=== PATIENT | female | born 1985 | race Caucasian/White ===

== ENCOUNTER 2017-02-06 10:37 | Emergency (ER) | payer OTHER ==
[2017-02-06 10:46] VITALS: RESP 18
--- NOTE | 2017-02-06 11:16 | ED ---
General Adult HPI - General Chief complaint: Abdominal Pain Stated complaint: ABDOMINAL PAIN Time Seen by Provider: 02/06/17 11:05 Source: patient, RN notes reviewed Mode of arrival: ambulatory Limitations: no limitations - History of Present Illness Initial comments: Patient 31-year-old female who presents emergency room today with a chief complaint of increased abdominal pain. Does admit that symptoms started late last night approximately 11 PM. She states that still experiencing pain this morning. She states she was instructed from her work to come here to the emergency room to have it checked. Patient does admit to pain locally to the epigastric area describes it as sharp. States she feels pain in the right side of the abdomen well. Patient is to feeling nauseated but has not had any vomiting. States never had symptoms like this before. Denies anything that makes it better or worse. Patient denies any recent fever, chills, shortness of breath, chest pain, back pain, vomiting, numbness or tingling, dysuria or hematuria, constipation or diarrhea, headaches or visual changes, or any other complaints. - Related Data Previous Rx's Medication Instructions Recorded Nitrofurantoin Monohyd/M-Cryst 100 mg PO Q12HR #14 cap 02/06/17 [Macrobid] Omeprazole 20 mg PO DAILY #20 capsule. 02/06/17 Allergies Allergy/AdvReac Type Severity Reaction Status Date / Time No Known Allergies Allergy Verified 02/06/17 11:04 Review of Systems ROS Statement: Those systems with pertinent positive or pertinent negative responses have been documented in the HPI. ROS Other: All systems not noted in ROS Statement are negative. Past Medical History Past Medical History: No Reported History History of Any Multi-Drug Resistant Organisms: None Reported Past Surgical History: No Surgical Hx Reported Past Psychological History: No Psychological Hx Reported Smoking Status: Never smoker Past Alcohol Use History: None Reported Past Drug Use History: None Reported - Past Family History Father Family Medical History: Cancer (Lymphoma), Diabetes Mellitus, Hypertension Mother Family Medical History: Diabetes Mellitus, Hypertension General Exam - General Exam Comments Initial Comments: General: The patient is awake and alert, in no distress, and does not appear acutely ill. Eye: Pupils are equal, round and reactive to light, extra-ocular movements are intact. No nystagmus. There is normal conjunctiva bilaterally. No signs of icterus. Ears, nose, mouth and throat: There are moist mucous membranes and no oral lesions. Neck: The neck is supple, there is no tenderness or JVD. Cardiovascular: There is a regular rate and rhythm. No murmur, rub or gallop is appreciated. Respiratory: Lungs are clear to auscultation, respirations are non-labored, breath sounds are equal. No wheezes, stridor, rales, or rhonchi. Gastrointestinal: Normal. Exam. Normal bowel sounds. Soft on palpation. Patient does have tenderness in epigastric and mild tenderness right upper quadrant. No rebound tenderness. No guarding. No CVA tenderness. Musculoskeletal: Normal ROM, no tenderness. Strength 5/5. Sensation intact. Pulses equal bilaterally 2+. Neurological: A&O x 3. CN II-XII intact, There are no obvious motor or sensory deficits. Coordination appears grossly intact. Speech is normal. Skin: Skin is warm and dry and no rashes or lesions are noted. Psychiatric: Cooperative, appropriate mood & affect, normal judgment. Limitations: no limitations Course Vital Signs 02/06/17 10:43 Temperature 98.7 F Pulse Rate 83 Respiratory 18 Rate Blood Pressure 158/81 O2 Sat by Pulse 99 Oximetry Medical Decision Making - Medical Decision Making [place] this time shows no signs of distress she is resting comfortably. Does admit that she had cocktail didn't help with some of the pain in the epigastric area. Patient's ultrasound reviewed and does show evidence for cholelithiasis but no sign of cholecystitis. Patient's labs reviewed and does show evidence of possible urinary tract infection. She does admit to increased urinary frequency will be started on antibiotics also will be started on omeprazole for her stomach and epigastric pain. Signs symptoms of gallbladder versus ulcer and acid reflux were discussed with the patient in detail advised follow-up return if symptoms increase or worsen. She states understanding and is in agreement. - Lab Data Result diagrams: 02/06/17 11:05 02/06/17 11:05 Lab Results 02/06/17 02/06/17 02/06/17 Range/Units 11:05 11:05 11:05 WBC 8.0 (3.8-10.6) k/uL RBC 4.39 (3.80-5.40) m/uL Hgb 13.9 (11.4-16.0) gm/dL Hct 40.0 (34.0-46.0) % MCV 91.0 (80.0-100.0) fL MCH 31.7 (25.0-35.0) pg MCHC 34.9 (31.0-37.0) g/dL RDW 13.1 (11.5-15.5) % Plt Count 235 (150-450) k/uL Neutrophils % 73 % Lymphocytes % 20 % Monocytes % 4 % Eosinophils % 1 % Basophils % 0 % Neutrophils # 5.8 (1.3-7.7) k/uL Lymphocytes # 1.6 (1.0-4.8) k/uL Monocytes # 0.3 (0-1.0) k/uL Eosinophils # 0.1 (0-0.7) k/uL Basophils # 0.0 (0-0.2) k/uL Sodium 143 (137-145) mmol/L Potassium 3.9 (3.5-5.1) mmol/L Chloride 105 (98-107) mmol/L Carbon Dioxide 25 (22-30) mmol/L Anion Gap 13 mmol/L BUN 14 (7-17) mg/dL Creatinine 0.80 (0.52-1.04) mg/dL Est GFR (MDRD) Af Amer >60 (>60 ml/min/1.73 sqM) Est GFR (MDRD) Non-Af >60 (>60 ml/min/1.73 sqM) Glucose 94 (74-99) mg/dL Calcium 9.4 (8.4-10.2) mg/dL Total Bilirubin 1.7 H (0.2-1.3) mg/dL AST 27 (14-36) U/L ALT 33 (9-52) U/L Alkaline Phosphatase 70 (38-126) U/L Total Protein 8.3 H (6.3-8.2) g/dL Albumin 4.7 (3.5-5.0) g/dL Amylase 43 (30-110) U/L Lipase 63 (23-300) U/L Urine Color Urine Appearance (Clear) Urine pH (5.0-8.0) Ur Specific [place] (1.001-1.035) Urine Protein (Negative) Urine Glucose (UA) (Negative) Urine Ketones (Negative) Urine Blood (Negative) Urine Nitrite (Negative) Urine Bilirubin (Negative) Urine Urobilinogen (<2.0) mg/dL Ur Leukocyte Esterase (Negative) Urine RBC (0-5) /hpf Urine WBC (0-5) /hpf Ur Squamous Epith Cells (0-4) /hpf Amorphous Sediment (None) /hpf Urine Mucus (None) /hpf Urine HCG, Qual Not Detected (Not Detectd) 02/06/17 Range/Units 11:05 WBC (3.8-10.6) k/uL RBC (3.80-5.40) m/uL Hgb (11.4-16.0) gm/dL Hct (34.0-46.0) % MCV (80.0-100.0) fL MCH (25.0-35.0) pg MCHC (31.0-37.0) g/dL RDW (11.5-15.5) % Plt Count (150-450) k/uL Neutrophils % % Lymphocytes % % Monocytes % % Eosinophils % % Basophils % % Neutrophils # (1.3-7.7) k/uL Lymphocytes # (1.0-4.8) k/uL Monocytes # (0-1.0) k/uL Eosinophils # (0-0.7) k/uL Basophils # (0-0.2) k/uL Sodium (137-145) mmol/L Potassium (3.5-5.1) mmol/L Chloride (98-107) mmol/L Carbon Dioxide (22-30) mmol/L Anion Gap mmol/L BUN (7-17) mg/dL Creatinine (0.52-1.04) mg/dL Est GFR (MDRD) Af Amer (>60 ml/min/1.73 sqM) Est GFR (MDRD) Non-Af (>60 ml/min/1.73 sqM) Glucose (74-99) mg/dL Calcium (8.4-10.2) mg/dL Total Bilirubin (0.2-1.3) mg/dL AST (14-36) U/L ALT (9-52) U/L Alkaline Phosphatase (38-126) U/L Total Protein (6.3-8.2) g/dL Albumin (3.5-5.0) g/dL Amylase (30-110) U/L Lipase (23-300) U/L Urine Color Yellow Urine Appearance Cloudy H (Clear) Urine pH 6.5 (5.0-8.0) Ur Specific [place] 1.013 (1.001-1.035) Urine Protein Negative (Negative) Urine Glucose (UA) Negative (Negative) Urine Ketones 1+ H (Negative) Urine Blood Moderate H (Negative) Urine Nitrite Negative (Negative) Urine Bilirubin Negative (Negative) Urine Urobilinogen <2.0 (<2.0) mg/dL Ur Leukocyte Esterase Moderate H (Negative) Urine RBC 1 (0-5) /hpf Urine WBC 9 H (0-5) /hpf Ur Squamous Epith Cells 3 (0-4) /hpf Amorphous Sediment Rare H (None) /hpf Urine Mucus Rare H (None) /hpf Urine HCG, Qual (Not Detectd) Disposition Clinical Impression: Urinary tract infection, Abdominal pain Disposition: HOME SELF-CARE Condition: Good Instructions: Abdominal Pain (ED) Additional Instructions: Please use medication as discussed. Please follow-up with family doctor in the next 2 days of symptoms have not improved. Please return to emergency room if the symptoms increase or worsen or for any other concerns. Prescriptions: Nitrofurantoin Monohyd/M-Cryst [Macrobid] 100 mg PO Q12HR #14 cap Omeprazole 20 mg PO DAILY #20 capsule.dr Referrals: Sal Queen MD [Primary Care Provider] - 1-2 days Time of Disposition: 12:25
[2017-02-06] MEDS: SODIUM CHLORIDE 0.9% 1,000 ML IV STA (11:27)
[2017-02-06] MEDS: MAG HYDROX/AL HYDROX/SIMETH 30 ML, HYOSCYAMINE ELIXIR 10 ML, CIMETIDINE HCL 300 MG, LID... PO STA ×4 (11:33)
[2017-02-06 11:40] LABS: Basophils % (A) 0 %; CH 32.3; CHCM 35.7; Eosinophils # (A) 0.1 k/uL (0-0.7); Eosinophils % (A) 1 %; HDW 2.83; HGB 13.9 gm/dL (11.4-16.0); Luc # (Auto) 0.13; Luc % (Auto) 2; Lymphocytes # (A) 1.6 k/uL (1.0-4.8); Lymphocytes % (A) 20 %; MCH 31.7 pg (25.0-35.0); MCHC 34.9 g/dL (31.0-37.0); Monocytes # (A) 0.3 k/uL (0-1.0); Monocytes % (A) 4 %; Neutrophils # (A) 5.8 k/uL (1.3-7.7); Neutrophils % (A) 73 %; RBC 4.39 m/uL (3.80-5.40); RDW 13.1 % (11.5-15.5); WBC (Perox) 7.85
[2017-02-06 12:01] LABS: ALT 33 U/L (9-52); AST 27 U/L (14-36); Alkaline Phosphatase 70 U/L (38-126); Amylase 43 U/L (30-110); Anion Gap 13 mmol/L; Blood Urea Nitrogen 14 mg/dL (7-17); Calcium 9.4 mg/dL (8.4-10.2); Carbon Dioxide 25 mmol/L (22-30); Chloride 105 mmol/L (98-107); Glucose 94 mg/dL (74-99); Non-African American GFR(MDRD) >60 (>60 ml/min/1.73 sqM); Potassium 3.9 mmol/L (3.5-5.1); Sodium 143 mmol/L (137-145); Total Bilirubin 1.7 mg/dL (0.2-1.3); Total Protein 8.3 g/dL (6.3-8.2)
[2017-02-06 12:10] LABS: Amorphous Sediment,Urine Rare /hpf; Appearance,Urine Cloudy (Clear); Bilirubin,Urine Negative (Negative); Glucose,Urine (UA) Negative (Negative); Ketones,Urine 1+ (Negative); Leukocyte Esterase,Urine Moderate (Negative); Mucus,Urine Rare /hpf; Nitrite,Urine Negative (Negative); PH, Urine 6.5 (5.0-8.0); Particle Count 3726; Protein,Urine Negative (Negative); RBC,Urine 1 /hpf (0-5); Specific Gravity,Urine 1.013 (1.001-1.035); Squamous Epithelial Cell,Urine 3 /hpf (0-4); UA Billing (MACRO vs. MICRO) MICRO; Urobilinogen,Urine <2.0 mg/dL (<2.0); WBC,Urine 9 /hpf (0-5)
--- NOTE | 2017-02-06 12:24 | US ---
EXAMINATION TYPE: US abdomen limited DATE OF EXAM: 02/06/2017 COMPARISON: NONE CLINICAL HISTORY: Pain. EXAM MEASUREMENTS: Liver Length: 17.7 cm Gallbladder Wall: 0.1 cm CBD: 0.5 cm Right Kidney: 12.2 x 4.8 x 5.4 cm Patient of large body habitus. Pancreas: Obscured by bowel gas Liver: Increased attenuation, hepatomegaly Gallbladder: cholelithiasis, no wall thickening Evidence for sonographic Levy's sign: no CBD: wnl Right Kidney: wnl IMPRESSION: 1. Hepatomegaly measuring 17.7 cm with increased attenuation of liver which can be associated with fa tty infiltration. Hepatitis or hepatocellular disease in the differential diagnosis. 2. Cholelithiasis.
[2017-02-06 12:50] VITALS: BP 137/87; PULSE 65; TEMP 98.1
== END 2017-02-06 12:50 | disposition home or self-care (01) ==
LOC: EC 10:37
DX: N39.0 Urinary tract infection, site not specified (principal); K80.20 Calculus of gallbladder without cholecystitis without obstruction
CPT/HCPCS: 36415; 76705; 80053; 81001; 81025; 82150; 83690; 85025; 96360; 99284

== ENCOUNTER 2018-08-24 13:05 | Outpatient (CLI) | payer OTHER ==
[2018-08-24 14:07] VITALS: BP 141/77; PULSE 83; RESP 16; TEMP 97.7
--- NOTE | 2018-08-24 20:13 | P.MSEPDOC ---
Presenting Problems - Arrival Data Date of Arrival on Unit: 08/24/18 Time of Arrival on Unit: 13:05 Mode of Transport: Ambulatory - Complaint OB-Reason for Admission/Chief Complaint: Pain Comment: back pain and pelvic pressure Medical History - Information : 6 Para: 4 Term: 3 : 4 Abortions: Spontaneous or Elective: 1 Number of Living Children: 4 - Gestational Age Gestational Age by JAKE (wks/days): 30 Weeks and 1 Days - History Complications: Prior Review of Systems - Review of Systems Constitutional: No problems Breast: No problems ENT: No problems Cardiovascular: No problems Respiratory: No problems Gastrointestinal: No problems Genitourinary: No problems Musculoskeletal: No problems Neurological: No problems Skin: No problems Vital Signs - Temperature Temperature: 97.7 F Temperature Source: Temporal Artery Scan - Pulse Right Brachial Pulse Rate: 83 Pulse Assessment Method: Automatic Cuff - Respirations Respiratory Rate: 16 Oxygen Delivery Method: Room Air O2 Sat by Pulse Oximetry: 97 - Blood Pressure Right Arm Blood Pressure: 141/77 Blood Pressure Mean: 98 Blood Pressure Source: Automatic Cuff Medical Screen Scoring (Pre) - Cervical Exam Dilation: 0 cm = 0 Membranes: Intact - Uterine Contractions Frequency: N/A Duration: N/A Intensity: N/A - Maternal Vital Signs Maternal Temperature: N/A Maternal Blood Pressure: Systolic >139 = 2 Signs of Preeclampsia: N/A Maternal Respirations: N/A - Pain Assessment Pain Location and Character: Pelvic Pain Scale Used: Numeric (1 - 10) Pain Intensity: 5 Pain Description: *Acute, Pressure Pain Frequency: Constant Pain Duration: 14 Pain Duration Units: Days Pain Behavior: None Exhibited Pain Aggravating Factors: Activity - Maternal Trauma Maternal Trauma: N/A - Assessment Baseline FHR: 135 Heart Rate - NICHD Category: Category I (Normal) = 0 NST: Reactive Position: N/A - Total Score Total Score (Pre): 2 - Level of Risk Level of Risk: Low (0-5) Physician Notification (Pre) - Physician Notified Physician Notified Date: 08/24/18 Physician Notified Time: 13:43 Spoke With: Jimmy Marcum Order Received: Yes (ffn, and check, if closed and reactive then d/c follow up with her Physicia) Physician Notification (Post) - Notification Comment Comment: closed, no contractions, reactive Disposition - Disposition OB Disposition: Discharge to home, Written follow up instructions reviewed Discharge Date: 08/24/18 Discharge Time: 13:59 I agree with the RN Medical Screening Exam: Yes Risk & Benefit of care provided described in d/c instruction: Yes Diagnosis: FALSE LABOR AT OR AFTER 37 COMPLETED WEEKS OF GESTATION
== END 2018-08-24 13:59 ==
LOC: FBPOP 13:05
PROVIDERS: ATTEND Obstetrics & Gynecology
DX: O47.1 False labor at or after 37 completed weeks of gestation (principal)
CPT/HCPCS: 59025; G0463; 99213

== ENCOUNTER 2018-11-12 22:05 | Outpatient (CLI) | payer OTHER ==
[2018-11-12 22:58] VITALS: BP 127/65; PULSE 104; RESP 16; TEMP 97.4
--- NOTE | 2018-11-13 01:01 | P.MSEPDOC ---
Presenting Problems - Arrival Data Date of Arrival on Unit: 11/12/18 Time of Arrival on Unit: 22:05 Mode of Transport: Ambulatory - Complaint Comment: Pelvic pressure Medical History - Information : 5 Para: 4 Term: 3 : 1 Abortions: Spontaneous or Elective: 0 Number of Living Children: 4 - Gestational Age Gestational Age by JAKE (wks/days): 37 Weeks and 1 Days Review of Systems - Review of Systems Constitutional: No problems Breast: No problems ENT: No problems Cardiovascular: No problems Respiratory: No problems Gastrointestinal: No problems Genitourinary: No problems Musculoskeletal: No problems Neurological: No problems Skin: No problems Vital Signs - Temperature Temperature: 97.4 F Temperature Source: Temporal Artery Scan - Pulse Right Brachial Pulse Rate: 104 Pulse Assessment Method: Automatic Cuff - Respirations Respiratory Rate: 16 Oxygen Delivery Method: Room Air O2 Sat by Pulse Oximetry: 97 - Blood Pressure Right Arm Blood Pressure: 127/65 Blood Pressure Mean: 85 Blood Pressure Source: Automatic Cuff Medical Screen Scoring (Pre) - Cervical Exam Dilation: 0 cm = 0 Membranes: Intact - Uterine Contractions Frequency: N/A Duration: N/A Intensity: N/A - Maternal Vital Signs Maternal Temperature: N/A Maternal Blood Pressure: N/A Maternal Respirations: N/A - Pain Assessment Pain Location and Character: Pelvic Pain Scale Used: Numeric (1 - 10) Pain Intensity: 3 Pain Description: *Acute, Pressure Pain Frequency: Intermittent Pain Duration Units: Minutes Pain Behavior: None Exhibited Pain Aggravating Factors: None - Maternal Trauma Maternal Trauma: N/A - Assessment Baseline FHR: 135 Heart Rate - NICHD Category: Category I (Normal) = 0 NST: Reactive Position: N/A - Total Score Total Score (Pre): 0 - Level of Risk Level of Risk: Low (0-5) Physician Notification (Pre) - Physician Notified Physician Notified Date: 11/12/18 Physician Notified Time: 22:40 Physician/Practitioner Notifed:: Dr. Currie Spoke With: Dr. Currie New Order Received: Yes - Notification Comment Comment: Dr. Currie given report on pt in tr. Pt c/o. VS WNL. Reactive NST. Vag exam of closed/thick/high. No contractions noted. Orders recieved to d/c pt to home once nst completed and reactive. To educate pt to continue care with personal drJes Disposition - Disposition OB Disposition: Discharge to home Discharge Date: 11/12/18 Discharge Time: 22:50 I agree with the RN Medical Screening Exam: Yes Risk & Benefit of care provided described in d/c instruction: Yes Diagnosis: UNSPECIFIED ABDOMINAL PAIN
== END 2018-11-12 22:50 | disposition home or self-care (01) ==
LOC: FBPOP 22:05
PROVIDERS: ATTEND Obstetrics & Gynecology
DX: O26.893 Other specified pregnancy related conditions, third trimester (principal); R10.9 Unspecified abdominal pain; Z3A.37 37 weeks gestation of pregnancy
CPT/HCPCS: 59025; G0463; 99213

== ENCOUNTER 2018-11-28 21:34 | Outpatient (CLI) | payer OTHER ==
[2018-11-28 22:13] VITALS: BP 135/74; PULSE 101; RESP 16; TEMP 97.5
--- NOTE | 2018-11-28 23:48 | P.MSEPDOC ---
Presenting Problems - Arrival Data Date of Arrival on Unit: 11/28/18 Time of Arrival on Unit: 21:34 Mode of Transport: Ambulatory - Complaint OB-Reason for Admission/Chief Complaint: Possible Onset of Labor Medical History - Information : 5 Para: 3 Term: 3 : 0 Abortions: Spontaneous or Elective: 0 Number of Living Children: 3 - Gestational Age Gestational Age by JAKE (wks/days): 39 Weeks and 3 Days Review of Systems - Review of Systems Constitutional: No problems Breast: No problems ENT: No problems Cardiovascular: No problems Respiratory: No problems Gastrointestinal: No problems Genitourinary: No problems Musculoskeletal: No problems Neurological: No problems Skin: No problems Vital Signs - Temperature Temperature: 97.5 F Temperature Source: Tympanic - Pulse Right Brachial Pulse Rate: 101 Pulse Assessment Method: Automatic Cuff - Respirations Respiratory Rate: 16 Oxygen Delivery Method: Room Air - Blood Pressure Right Arm Blood Pressure: 135/74 Blood Pressure Mean: 94 Blood Pressure Source: Automatic Cuff Medical Screen Scoring (Pre) - Cervical Exam Dilation: 4-7 cm = 2 Membranes: Intact - Uterine Contractions Frequency: N/A Duration: N/A Intensity: N/A - Maternal Vital Signs Maternal Temperature: N/A Maternal Blood Pressure: N/A Signs of Preeclampsia: N/A Maternal Respirations: N/A - Pain Assessment Pain Location and Character: Abdomen Pain Scale Used: Numeric (1 - 10) Pain Intensity: 2 Pain Management Goal: 0 Pain Description: *Acute Pain Radiation Location: na Pain Frequency: Intermittent Pain Duration: 15 Pain Duration Units: Minutes Pain Behavior: Vocalization Pain Aggravating Factors: None - Maternal Trauma Maternal Trauma: N/A - Assessment Baseline FHR: 155 Heart Rate - NICHD Category: Category I (Normal) = 0 NST: Reactive Position: N/A Station: N/A - Total Score Total Score (Pre): 2 - Level of Risk Level of Risk: Low (0-5) Physician Notification (Pre) - Physician Notified Physician Notified Date: 11/28/18 Physician Notified Time: 22:06 Physician/Practitioner Notifed:: Dr. Knight Spoke With: Dr. Knight New Order Received: Yes - Notification Comment Comment: recheck cervix in one hour I agree with the RN Medical Screening Exam: Yes Risk & Benefit of care provided described in d/c instruction: Yes Diagnosis: FALSE LABOR BEFORE 37 COMPLETED WEEKS OF GEST, THIRD TRI
== END 2018-11-28 22:40 | disposition home or self-care (01) ==
LOC: FBPOP 21:34
PROVIDERS: ATTEND Obstetrics & Gynecology
DX: O47.03 False labor before 37 completed weeks of gestation, third trimester (principal)
CPT/HCPCS: 59025; G0463; 99213

== ENCOUNTER 2018-11-29 09:28 | Inpatient (IN) | payer OTHER ==
[2018-11-29] MEDS ORDERED: CARBOPROST TROMETHAMINE 250 MCG/ML 1 ML AMP IM PRN (09:56)
[2018-11-29] MEDS ORDERED: TERBUTALINE 1 MG/ML VIAL SQ PRN (09:56)
[2018-11-29] MEDS ORDERED: OXYTOCIN 10 UNIT/ML 1 ML VIAL IM PRN (09:56)
[2018-11-29] MEDS ORDERED: LIDOCAINE 0.5% (PF) 5 MG/ML (50 ML SDV) SQ PRN (09:56)
[2018-11-29] MEDS ORDERED: METHYLERGONOVINE 0.2 MG/ML 1 ML AMP IM PRN (09:56)
[2018-11-29] MEDS ORDERED: LACTATED RINGERS 1,000 ML IV SCH (10:00)
[2018-11-29] MEDS ORDERED: OXYTOCIN 30 UNITS/500 ML NS 30 UNIT in SALINE 1 500ML.BAG IV SCH (10:00)
[2018-11-29] MEDS ORDERED: AMPICILLIN 2,000 MG in SODIUM CHLORIDE 0.9% 100 ML IVPB STA (10:03)
--- NOTE | 2018-11-29 10:30 | P.HPOB ---
History of Present Illness H&P Date: 11/29/18 Chief Complaint: Normal labor 33-year-old G5 the P4 presents at 39 weeks 4 days in active labor. Her cervix is 8 cm dilated, 90% effaced, and -2 station. She is galina irregularly. heart tones are 140 with moderate variability and positive accelerations, reactive, category 1 tracing. Review of Systems All systems: negative Constitutional: Denies chills, Denies fever Eyes: denies blurred vision, denies pain Ears, nose, mouth and throat: Denies headache, Denies sore throat Cardiovascular: Denies chest pain, Denies shortness of breath Respiratory: Denies cough Gastrointestinal: Denies abdominal pain, Denies diarrhea, Denies nausea, Denies vomiting Genitourinary: Denies dysuria, Denies hematuria Musculoskeletal: Denies myalgias Integumentary: Denies pruritus, Denies rash Neurological: Denies numbness, Denies weakness Psychiatric: Denies anxiety, Denies depression Endocrine: Denies fatigue, Denies weight change Past Medical History Past Medical History: No Reported History Additional Past Medical History / Comment(s): Obstetric history: She's had 4 previous vaginal deliveries. This is her fifth and she got most her care in [place] recently transferred to Dr. Witt. Blood type is A- , antibodies negative, rubella immune, hepatitis B negative, HIV nonreactive, RPR nonreactive, declined quad screen and declined cystic fibrosis screening, abnormal 1 hour but normal 3 hour GTT, GBS negative. History of Any Multi-Drug Resistant Organisms: None Reported Past Surgical History: No Surgical Hx Reported Smoking Status: Never smoker - Past Family History Father Family Medical History: Cancer (Lymphoma), Diabetes Mellitus, Hypertension Mother Family Medical History: Diabetes Mellitus, Hypertension Medications and Allergies Home Medications Medication Instructions Recorded Confirmed Type Pnv No.95/Ferrous Fum/Folic AC 1 tab PO ONCE 11/12/18 11/29/18 History [ Multivitamin Tablet] Allergies Allergy/AdvReac Type Severity Reaction Status Date / Time No Known Allergies Allergy Verified 11/28/18 22:01 Exam Osteopathic Statement: *. No significant issues noted on an osteopathic structural exam other than those noted in the History and Physical/Consult. Intake and Output 11/28/18 11/29/18 11/29/18 22:59 06:59 14:59 Other: Weight 114.759 kg Heart: Regular rate and rhythm Lungs: Clear to auscultation bilaterally Abdomen: Soft, nontender Extremities: Negative Homans sign Assessment and Plan (1) Normal labor Current Visit: Yes Status: Acute Code(s): O80 - ENCOUNTER FOR FULL-TERM UNCOMPLICATED DELIVERY; Z37.9 - OUTCOME OF DELIVERY, UNSPECIFIED SNOMED Code(s): 02020567 Plan: 1. Admit to family place 2. Anticipate normal vaginal delivery
[2018-11-29 10:37] LABS: Anisocytosis Slight; Basophils % (A) 0 %; Eosinophils # (A) 0.1 k/uL (0-0.7); Eosinophils % (A) 1 %; HCT 33.8 % (34.0-46.0); HGB 11.7 gm/dL (11.4-16.0); Lymphocytes # (A) 1.6 k/uL (1.0-4.8); Lymphocytes % (A) 16 %; MCH 29.8 pg (25.0-35.0); MCHC 34.7 g/dL (31.0-37.0); MCV 85.9 fL (80.0-100.0); Mean Platelet Volume 11.2; Monocytes # (A) 0.3 k/uL (0-1.0); Monocytes % (A) 3 %; Neutrophils # (A) 8.1 k/uL (1.3-7.7); Neutrophils % (A) 79 %; Platelet Count 204 k/uL (150-450); RBC 3.94 m/uL (3.80-5.40); WBC 10.2 k/uL (3.8-10.6)
[2018-11-29] MEDS: OXYTOCIN 20 UNITS/1000 ML NS 1,000 ML IV SCH ×2 (10:40→12:08)
--- NOTE | 2018-11-29 10:57 | P.PROBDLV ---
Vaginal Delivery Note - . Vaginal Delivery Note: 33-year-old G5 the P4 presents at 39 weeks 4 days in active labor. Her cervix is 8 cm dilated, 90% effaced, and -2 station. She is galina irregularly. heart tones are 140 with moderate variability and positive accelerations, reactive, category 1 tracing. She was admitted to [facility]. Amniotomy was performed at 10:08 AM, thin meconium fluid seen. Her cervix was completely dilated at 10:35 AM, she pushed, delivered a viable female infant ove r intact perineum at 10:38 a.m. Head delivered OA, nuchal cord 1 easily reduced, anterior shoulder delivered gentle guidance followed by posterior shoulder and rest of body. Nose and mouth bulb suctioned, cord clamped and cut, infant placed mother's abdomen. Apgars 9, 9, weight 8 lbs. 2 oz. Placenta delivered spontaneously, intact with three-vessel cord at 10:41 AM. Vagina, cervix, and perineum were inspected. First-degree midline laceration was repaired with 3-0 Vicryl. Estimated blood loss 200 mL. Mother and baby in stable condition.
[2018-11-29] MEDS ORDERED: ZOLPIDEM 5 MG TAB PO PRN (11:13)
[2018-11-29] MEDS ORDERED: SIMETHICONE 80 MG CHEWABLE PO PRN (11:13)
[2018-11-29] MEDS ORDERED: diphenhydrAMINE 50 MG CAP PO PRN (11:13)
[2018-11-29] MEDS ORDERED: BENZOCAINE/MENTHOL SPRAY 1 GM/SPRAY AEROSOL TOPICAL PRN (11:13)
[2018-11-29] MEDS ORDERED: WITCH HAZEL 1 EACH MED..PAD TOPICAL PRN (11:13)
[2018-11-29] MEDS ORDERED: HYDROCORTISONE 2.5% RECTAL CREAM 30 GM TUBE RECTAL PRN (11:13)
[2018-11-29] MEDS ORDERED: LANOLIN CREAM 5 GM TUBE TOPICAL PRN (11:13)
[2018-11-29] MEDS ORDERED: ACETAMINOPHEN TAB 325 MG TAB PO PRN (11:13)
[2018-11-29] MEDS ORDERED: diphenhydrAMINE 25 MG CAP PO PRN (11:13)
[2018-11-29 11:52] VITALS: BMI 43.4
[2018-11-29] MEDS: IBUPROFEN 600 MG TAB PO PRN ×3 (12:06→23:38)
[2018-11-29] MEDS ORDERED: AMPICILLIN 1,000 MG in SODIUM CHLORIDE 0.9% 50 ML IVPB SCH (14:00)
[2018-11-29] MEDS ORDERED: Rhogam IMMUNE GLOBULIN 1,500 UNIT/1 ML IM ONE (16:16)
[2018-11-29] MEDS: SENNOSIDES-DOCUSATE SODIUM 1 EACH TAB PO SCH (20:01)
[2018-11-30 06:09] LABS: Basophils % (A) 0 %; Eosinophils # (A) 0.1 k/uL (0-0.7); Eosinophils % (A) 1 %; HCT 28.1 % (34.0-46.0); Lymphocytes # (A) 1.8 k/uL (1.0-4.8); Lymphocytes % (A) 20 %; MCH 30.2 pg (25.0-35.0); MCV 88.8 fL (80.0-100.0); Mean Platelet Volume 8.2; Monocytes # (A) 0.4 k/uL (0-1.0); Monocytes % (A) 4 %; Neutrophils # (A) 6.6 k/uL (1.3-7.7); Neutrophils % (A) 74 %; Platelet Count 189 k/uL (150-450); RBC 3.16 m/uL (3.80-5.40); RDW 14.5 % (11.5-15.5); WBC 8.9 k/uL (3.8-10.6)
[2018-11-30 06:16] LABS: HGB 9.5 gm/dL (11.4-16.0)
[2018-11-30] MEDS: SENNOSIDES-DOCUSATE SODIUM 1 EACH TAB PO SCH (07:30)
[2018-11-30] MEDS: IBUPROFEN 600 MG TAB PO PRN (07:49)
[2018-11-30 07:54] VITALS: RESP 17
--- NOTE | 2018-11-30 08:50 | P.DS ---
Providers Date of admission: 11/29/18 09:44 Expected date of discharge: 11/30/18 Attending physician: Mohinder Witt Primary care physician: Stated None Hospital Course: Senia is doing very well day 1. She is ambulating, voiding, and she is tolerating her diet. She voices no complaints and is requesting discharge to home today. Prescription for a breast pump and Motrin are provided. All other questions are answered for her prior to discharge. On physical exam her vital signs are stable and afebrile. Heart regular, lungs clear, extremities are without pain. Abdomen is soft and nontender uterus is firm and lochia is reported to be light. Assessment day 1. Plan discharged home follow up with me in 6 weeks. Discharge instructions were thoroughly reviewed. Patient Condition at Discharge: Good Plan - Discharge Summary New Discharge Prescriptions: New Ibuprofen [Motrin] 600 mg PO Q6HR PRN #30 tab PRN Reason: Pain No Action Pnv No.95/Ferrous Fum/Folic AC [ Multivitamin Tablet] 1 tab PO ONCE Discharge Medication List Pnv No.95/Ferrous Fum/Folic AC [ Multivitamin Tablet] 1 tab PO ONCE 11/12/18 [History] Ibuprofen [Motrin] 600 mg PO Q6HR PRN #30 tab 11/30/18 [Rx] Follow up Appointment(s)/Referral(s): Mohinder Witt DO [Doctor of Osteopathic Medicine] - 6 Weeks Activity/Diet/Wound Care/Special Instructions: Pelvic rest, no heavy lifting, limit stairs and driving. If any high temperatures, heavy bleeding, or severe pain call my office Discharge Disposition: HOME SELF-CARE
[2018-11-30 16:10] VITALS: BP 112/72; PULSE 70; TEMP 98.7
== END 2018-11-30 16:37 | disposition home or self-care (01) | DRG 807 ==
LOC: FBPOP 09:28 → 4FBP 09:44
PROVIDERS: ADMIT Obstetrics & Gynecology; ATTEND Obstetrics & Gynecology
PROC: 10E0XZZ Delivery of Products of Conception, External Approach (ICD-10-PCS; principal; 2018-11-29)
PROC: 0HQ9XZZ Repair Perineum Skin, External Approach (ICD-10-PCS; 2018-11-29)
PROC: 3E0234Z Introduction of Serum, Toxoid and Vaccine into Muscle, Percutaneous Approach (ICD-10-PCS; 2018-11-29)
DX: O69.81X0 Labor and delivery complicated by cord around neck, without compression, not applicable or unspecified (principal); Z37.0 Single live birth; O26.893 Other specified pregnancy related conditions, third trimester; Z67.11 Type A blood, Rh negative; O70.0 First degree perineal laceration during delivery; O77.0 Labor and delivery complicated by meconium in amniotic fluid; Z3A.39 39 weeks gestation of pregnancy; Z79.899 Other long term (current) drug therapy; Z80.7 Family history of other malignant neoplasms of lymphoid, hematopoietic and related tissues; Z83.3 Family history of diabetes mellitus; Z82.49 Family history of ischemic heart disease and other diseases of the circulatory system
CPT/HCPCS: 85025; 85461; 86850; 86900; 86901; 88307

== ENCOUNTER 2019-08-25 11:51 | Emergency (ER) | payer OTHER ==
[2019-08-25 11:55] VITALS: RESP 18
[2019-08-25 12:28] LABS: Appearance,Urine Cloudy (Clear); Bacteria,Urine Rare /hpf; Bilirubin,Urine Negative (Negative); Blood,Urine Negative (Negative); Color,Urine Yellow; Glucose,Urine (UA) Negative (Negative); Hyaline Casts,Urine 1 /lpf (0-2); Ketones,Urine Negative (Negative); Leukocyte Esterase,Urine Moderate (Negative); Mucus,Urine Rare /hpf; Nitrite,Urine Negative (Negative); Protein,Urine Negative (Negative); RBC,Urine 2 /hpf (0-5); Squamous Epithelial Cell,Urine 8 /hpf (0-4); Urobilinogen,Urine <2.0 mg/dL (<2.0); WBC,Urine 7 /hpf (0-5)
--- NOTE | 2019-08-25 12:41 | ED ---
Abdominal Pain HPI - General Chief Complaint: Abdominal Pain Stated Complaint: 6wks preg, spotting, cramping Time Seen by Provider: 08/25/19 12:09 Source: patient Mode of arrival: ambulatory Limitations: no limitations - History of Present Illness Initial Comments: Patient is a 34-year-old female presenting to the emergency Department with complaints of left-sided abdominal pain as well as vaginal spotting. Patient states she took a test 2 days ago which was positive. Her last menstrual cycle was 6 weeks ago. She would be . COPRA PROCESSOR is Dr. Currie/Dr. Yan. She states that the spotting was very minimal this morning, no current bleeding. Patient describes the pain as a lower left quadrant and sharp in nature with sometimes radiation across the lower abdomen. No history of abdominal surgeries. She does admit to mild nausea, no fevers, chills, diarrhea. Patient has no other complaints at this time. Upon arrival to the ER, her vital signs are stable. - Related Data Home Medications Medication Instructions Recorded Confirmed Xgi-Ytse-Wsdsj Acid 1 tablet PO DAILY 11/30/18 11/30/18 [-U Capsule (formulary)] Previous Rx's Medication Instructions Recorded Ibuprofen [Motrin] 600 mg PO Q6HR PRN #30 tab 11/30/18 Allergies Allergy/AdvReac Type Severity Reaction Status Date / Time No Known Allergies Allergy Verified 08/25/19 11:55 Review of Systems ROS Statement: Those systems with pertinent positive or pertinent negative responses have been documented in the HPI. ROS Other: All systems not noted in ROS Statement are negative. Past Medical History Past Medical History: No Reported History Additional Past Medical History / Comment(s): Obstetric history: She's had 4 previous vaginal deliveries. This is her fifth and she got most her care in [place] recently transferred to Dr. Witt. Blood type is A- , antibodies negative, rubella immune, hepatitis B negative, HIV nonreactive, RPR nonreactive, declined quad screen and declined cystic fibrosis screening, abnormal 1 hour but normal 3 hour GTT, GBS negative. History of Any Multi-Drug Resistant Organisms: None Reported Past Surgical History: No Surgical Hx Reported Past Anesthesia/Blood Transfusion Reactions: No Reported Reaction Past Psychological History: No Psychological Hx Reported Smoking Status: Never smoker Past Alcohol Use History: None Reported Past Drug Use History: None Reported - Past Family History Father Family Medical History: Cancer (Lymphoma), Diabetes Mellitus, Hypertension Mother Family Medical History: Diabetes Mellitus, Hypertension General Exam - General Exam Comments Initial Comments: GENERAL: Well-appearing, well-nourished and in no acute distress. HEAD: Atraumatic, normocephalic. EYES: Pupils equal round and reactive to light, extraocular movements intact, sclera anicteric, conjunctiva are normal. ENT: TMs normal, nares patent, oropharynx clear without exudates. Moist mucous m embranes. NECK: Normal range of motion, supple without lymphadenopathy or JVD. LUNGS: Breath sounds clear to auscultation bilaterally and equal. No wheezes rales or rhonchi. HEART: Regular rate and rhythm without murmurs, rubs or gallops. ABDOMEN: Mild suprapubic tenderness and left and right quadrant pain. Soft, normoactive bowel sounds. No guarding, no rebound. No masses appreciated. EXTREMITIES: Normal range of motion, no pitting or edema. No clubbing or cyanosis. NEUROLOGICAL: Normal speech, normal gait. PSYCH: Normal mood, normal affect. SKIN: Warm, Dry, normal turgor, no rashes or lesions noted. Limitations: no limitations External exam: Present: normal external exam. Absent: lesions, lacerations Speculum exam: Present: normal speculum exam. Absent: cervical discharge, vaginal bleeding, foreign body By manual exam: Present: normal by manual exam. Absent: cervical motion tenderness Course Vital Signs 08/25/19 08/25/19 11:52 14:08 Temperature 99.1 F 98.7 F Pulse Rate 86 100 Respiratory 18 18 Rate Blood Pressure 134/82 130/76 O2 Sat by Pulse 98 99 Oximetry Medical Decision Making - Medical Decision Making Patient is a 34-year-old female presenting for vaginal spotting and lower left quadrant abdominal pain since this morning. She is 6 weeks . . COPRA PROCESSOR is Dr. Currie or Dr. Witt. Lab work shows no acute abnormalities. Beta hCG is 5900. UA shows no signs of infection. Ultrasound shows an intrauterine gestational sac and yolk sac are seen however no pole is identified at this time. Could be too early. A possible large subchronic hemorrhage is also found. Ectopic are not excluded at this time. I discussed these findings with the patient. Patient is to follow-up with her COPRA PROCESSOR tomorrow. She is in agreement with this plan of care. Patient is able for discharge at this time. Should return parameters were discussed with the patient she verbalized understanding. Case discussed with Dr. Bess. - Lab Data Result diagrams: 08/25/19 12:40 08/25/19 12:40 Lab Results 08/25/19 08/25/19 08/25/19 Range/Units 12:10 12:10 12:37 WBC (3.8-10.6) k/uL RBC (3.80-5.40) m/uL Hgb (11.4-16.0) gm/dL Hct (34.0-46.0) % MCV (80.0-100.0) fL MCH (25.0-35.0) pg MCHC (31.0-37.0) g/dL RDW (11.5-15.5) % Plt Count (150-450) k/uL Neutrophils % % Lymphocytes % % Monocytes % % Eosinophils % % Basophils % % Neutrophils # (1.3-7.7) k/uL Lymphocytes # (1.0-4.8) k/uL Monocytes # (0-1.0) k/uL Eosinophils # (0-0.7) k/uL Basophils # (0-0.2) k/uL Sodium (137-145) mmol/L Potassium (3.5-5.1) mmol/L Chloride (98-107) mmol/L Carbon Dioxide (22-30) mmol/L Anion Gap mmol/L BUN (7-17) mg/dL Creatinine (0.52-1.04) mg/dL Est GFR (CKD-EPI)AfAm (>60 ml/min/1.73 sqM) Est GFR (CKD-EPI)NonAf (>60 ml/min/1.73 sqM) Glucose (74-99) mg/dL Calcium (8.4-10.2) mg/dL Total Bilirubin (0.2-1.3) mg/dL AST (14-36) U/L ALT (4-34) U/L Alkaline Phosphatase (38-126) U/L Total Protein (6.3-8.2) g/dL Albumin (3.5-5.0) g/dL HCG, Quant mIU/mL Urine Color Yellow Urine Appearance Cloudy H (Clear) Urine pH 6.0 (5.0-8.0) Ur Specific [place] 1.020 (1.001-1.035) Urine Protein Negative (Negative) Urine Glucose (UA) Negative (Negative) Urine Ketones Negative (Negative) Urine Blood Negative (Negative) Urine Nitrite Negative (Negative) Urine Bilirubin Negative (Negative) Urine Urobilinogen <2.0 (<2.0) mg/dL Ur Leukocyte Esterase Moderate H (Negative) Urine RBC 2 (0-5) /hpf Urine WBC 7 H (0-5) /hpf Ur Squamous Epith Cells 8 H (0-4) /hpf Urine Bacteria Rare H (None) /hpf Hyaline Casts 1 (0-2) /lpf Urine Mucus Rare H (None) /hpf Urine HCG, Qual Detected (Not Detectd) Trichomonas Ag (Rapid) Negative (Negative) Blood Type Blood Type Recheck Bld Type Recheck Status 08/25/19 08/25/19 08/25/19 Range/Units 12:40 12:40 12:40 WBC 8.7 (3.8-10.6) k/uL RBC 4.20 (3.80-5.40) m/uL Hgb 12.8 (11.4-16.0) gm/dL Hct 37.9 (34.0-46.0) % MCV 90.2 (80.0-100.0) fL MCH 30.5 (25.0-35.0) pg MCHC 33.8 (31.0-37.0) g/dL RDW 13.4 (11.5-15.5) % Plt Count 243 (150-450) k/uL Neutrophils % 74 % Lymphocytes % 20 % Monocytes % 3 % Eosinophils % 2 % Basophils % 0 % Neutrophils # 6.4 (1.3-7.7) k/uL Lymphocytes # 1.7 (1.0-4.8) k/uL Monocytes # 0.3 (0-1.0) k/uL Eosinophils # 0.2 (0-0.7) k/uL Basophils # 0.0 (0-0.2) k/uL Sodium 138 (137-145) mmol/L Potassium 4.0 (3.5-5.1) mmol/L Chloride 107 (98-107) mmol/L Carbon Dioxide 24 (22-30) mmol/L Anion Gap 7 mmol/L BUN 11 (7-17) mg/dL Creatinine 0.76 (0.52-1.04) mg/dL Est GFR (CKD-EPI)AfAm >90 (>60 ml/min/1.73 sqM) Est GFR (CKD-EPI)NonAf >90 (>60 ml/min/1.73 sqM) Glucose 108 H (74-99) mg/dL Calcium 9.1 (8.4-10.2) mg/dL Total Bilirubin 0.8 (0.2-1.3) mg/dL AST 34 (14-36) U/L ALT 38 H (4-34) U/L Alkaline Phosphatase 62 (38-126) U/L Total Protein 7.6 (6.3-8.2) g/dL Albumin 4.2 (3.5-5.0) g/dL HCG, Quant 5909.8 mIU/mL Urine Color Urine Appearance (Clear) Urine pH (5.0-8.0) Ur Specific [place] (1.001-1.035) Urine Protein (Negative) Urine Glucose (UA) (Negative) Urine Ketones (Negative) Urine Blood (Negative) Urine Nitrite (Negative) Urine Bilirubin (Negative) Urine Urobilinogen (<2.0) mg/dL Ur Leukocyte Esterase (Negative) Urine RBC (0-5) /hpf Urine WBC (0-5) /hpf Ur Squamous Epith Cells (0-4) /hpf Urine Bacteria (None) /hpf Hyaline Casts (0-2) /lpf Urine Mucus (None) /hpf Urine HCG, Qual (Not Detectd) Trichomonas Ag (Rapid) (Negative) Blood Type A Negative Blood Type Recheck A Neg Bld Type Recheck Status No Disposition Clinical Impression: Abdominal pain, and not yet delivered in first trimester Disposition: HOME SELF-CARE Condition: Stable Instructions (If sedation given, give patient instructions): Abdominal Pain in (ED) Additional Instructions: Please return to the Emergency Department if symptoms worsen or any other concerns. Follow up with Dr. Currie or Dr. Salcedo tomorrow as discussed. Is patient prescribed a controlled substance at d/c from ED?: No Referrals: None,Stated [Primary Care Provider] - 1-2 days Jeaneth Currie DO [Doctor of Osteopathic Medicine] - 1-2 days
[2019-08-25 13:08] LABS: Basophils % (A) 0 %; Eosinophils # (A) 0.2 k/uL (0-0.7); Eosinophils % (A) 2 %; HCT 37.9 % (34.0-46.0); HGB 12.8 gm/dL (11.4-16.0); Lymphocytes # (A) 1.7 k/uL (1.0-4.8); Lymphocytes % (A) 20 %; MCH 30.5 pg (25.0-35.0); MCHC 33.8 g/dL (31.0-37.0); MCV 90.2 fL (80.0-100.0); Mean Platelet Volume 7.4; Monocytes # (A) 0.3 k/uL (0-1.0); Monocytes % (A) 3 %; Neutrophils # (A) 6.4 k/uL (1.3-7.7); Neutrophils % (A) 74 %; Platelet Count 243 k/uL (150-450); RDW 13.4 % (11.5-15.5); WBC 8.7 k/uL (3.8-10.6)
[2019-08-25 13:12] LABS: ALT 38 U/L (4-34); AST 34 U/L (14-36); African American GFR (CKD) >90 (>60 ml/min/1.73 sqM); Albumin 4.2 g/dL (3.5-5.0); Alkaline Phosphatase 62 U/L (38-126); Anion Gap 7 mmol/L; Blood Urea Nitrogen 11 mg/dL (7-17); Calcium 9.1 mg/dL (8.4-10.2); Carbon Dioxide 24 mmol/L (22-30); Chloride 107 mmol/L (98-107); Glucose 108 mg/dL (74-99); Non-African American GFR(CKD) >90 (>60 ml/min/1.73 sqM); Sodium 138 mmol/L (137-145); Total Bilirubin 0.8 mg/dL (0.2-1.3); Total Protein 7.6 g/dL (6.3-8.2)
[2019-08-25 13:28] LABS: HCG,Quantitative Serum 5909.8 mIU/mL
--- NOTE | 2019-08-25 13:28 | US ---
EXAMINATION TYPE: Transabdominal DATE OF EXAM: 08/25/2019 1:11 PM COMPARISON: NONE CLINICAL HISTORY: LLQ pain, spotting. Left pelvic pain, spotting EXAM PERFORMED: Transvaginal (TV) and Transabdominal (TA) EXAM MEASUREMENTS: GESTATIONAL AGE / DATING Physician Established: Not yet established Dates by LMP: (6 weeks/1 days) EDC: 04/18/20 Dates by First Scan: No previous this is first scan Dates by Current Scan for: (5 weeks/4 days) - calculated by MSD EDC: 04/22/20 MATERNAL ANATOMY Uterus: 10.1 x 5.4 x 6.5cm Right Ovary: 3.5 x 1.4 x 1.4cm Left Ovary: 3.2 x 2.1 x 3.0cm Post CDS / Adnexa: appears wnl Presence of free fluid: no Presence of corpus luteal cyst: yes, hypoechoic area left ovary = 2.0 x 1.9 x 2.1cm Presence of subchorionic bleed: Possible, fluid within the endometrial canal adjacent to the gestatio nal sac measures 2.9 x 2.2cm GESTATION / SURVEY MSD: 1.0cm (5 weeks/4 days) Yolk Sac (normal less than 6mm): 2.8mm No evidence of pole at this time Date of LMP: 07/13/19 Beta HcG (if available): not available at this time Probable gestational sac along with yolk sac identified within uterus, no evidence of pole at t his time. Possible subchorionic hemorrhage adjacent to GS. Corpus luteum left ovary IMPRESSION: Intrauterine gestational sac and yolk sac are seen, likely early intrauterine . However no f etal pole is yet seen and a moderate amount of fluid is seen within the endometrial canal, possible l arge subchorionic hemorrhage. This finding can also be physiologic. Given the lack of visualization o f the pole ectopic and anembryonic are not excluded.
[2019-08-25 14:10] VITALS: BP 130/76; PULSE 100; TEMP 98.7
== END 2019-08-25 14:09 | disposition home or self-care (01) ==
LOC: EC 11:51
DX: O26.891 Other specified pregnancy related conditions, first trimester (principal); R10.32 Left lower quadrant pain; Z3A.01 Less than 8 weeks gestation of pregnancy
CPT/HCPCS: 36415; 76801; 76817; 80053; 81001; 81025; 84702; 85025; 86900; 86901; 87070; 87491; 87591; 87808; 99284

== ENCOUNTER → 2019-08-27 | Outpatient (CLI) | payer OTHER | END | disposition home or self-care (01) | LOC: LABWHC1 06:49 | PROVIDERS: ATTEND Obstetrics & Gynecology | DX: O20.0 Threatened abortion (principal) | CPT/HCPCS: 36415; 84702; 86850; 86900; 86901 ==

== ENCOUNTER → 2019-08-30 | Outpatient (CLI) | payer OTHER ==
--- NOTE | 2019-08-30 11:38 | US ---
EXAMINATION TYPE: Transabdominal DATE OF EXAM: 08/30/2019 10:49 AM COMPARISON: US CLINICAL HISTORY: O46.91 Antepartum hemorrhage, unspecified, first t. EXAM PERFORMED: Transvaginal (TV) and Transabdominal (TA) EXAM MEASUREMENTS: GESTATIONAL AGE / DATING Physician Established: Not yet established Dates by LMP: (6 weeks/6 days) EDC: 04/18/20 Dates by First Scan: not dated by 1st scan Dates by Current Scan for: Unable to date by today's study MATERNAL ANATOMY Uterus: 11.0 x 5.3 x 7.3cm Right Ovary: obscured by overlying bowel gas Left Ovary: obscured by overlying bowel gas Post CDS / Adnexa: wnl Presence of free fluid: no Probable subchorionic hemorrhage measuring 2.5 x 0.7 x 1.0cm GESTATION / SURVEY CRL: not visualized MSD: 1.5cm (6 weeks/1 days) Yolk Sac (normal less than 6mm): 2mm IUP: No IUP seen at this time Date of LMP: 07/13/19 Beta HcG (if available): not available Patient of large body habitus, patient couldn't hold bladder and was emptying bladder when technologi st went to get her. However, patient also couldn't empty bladder when directed to before transvaginal ultrasound. This along with patient obesity caused technical difficulties for both. Ultrasound appears similar to previous done 5 days prior. It is unclear at this time whether this is an early vs demise. IMPRESSION: Exam is technically limited as detailed above. There is been some interval enlargement of the mean sac diameter, however the remainder exam appears similar to the prior of 08/25/2019. No pole is yet visualized and therefore considerations remain for early intrauterine , anembryonic , or less likely ectopic. Mean sac diameter h as not reached diagnostic levels of failed . Small subchorionic hemorrhage is again seen. Co rrelation with serial serum beta hCG levels is recommended. Repeat ultrasound is recommended in 7 day s.
== END | disposition home or self-care (01) ==
LOC: RADUSWWP 09:59
PROVIDERS: ATTEND Obstetrics & Gynecology
DX: O46.8X1 Other antepartum hemorrhage, first trimester (principal); O99.211 Obesity complicating pregnancy, first trimester; Z3A.01 Less than 8 weeks gestation of pregnancy
CPT/HCPCS: 76801; 76817

== ENCOUNTER → 2019-09-21 | Outpatient (CLI) | payer OTHER | END | disposition home or self-care (01) | LOC: LABWHC1 16:50 | PROVIDERS: ATTEND Obstetrics & Gynecology | DX: O03.9 Complete or unspecified spontaneous abortion without complication (principal) | CPT/HCPCS: 36415; 84702 ==

== ENCOUNTER → 2019-09-22 | Outpatient (CLI) | payer OTHER ==
--- NOTE | 2019-09-22 15:29 | US ---
EXAMINATION TYPE: Transabdominal DATE OF EXAM: 09/22/2019 2:49 PM COMPARISON: US 08/30/2019 CLINICAL HISTORY: Z36 confirm dates. Confirm Dates EXAM PERFORMED: Transabdominal (TA) EXAM MEASUREMENTS: GESTATIONAL AGE / DATING Physician Established: (10 weeks/1 days) EDC: 04/18/2020 Dates by LMP: (10 weeks/1 days) EDC: 04/18/2020 Dates by First Scan: (9 weeks/4 days) EDC: 04/22/2020 Dates by Current Scan for: (10 weeks/0 days) EDC: 04/19/2020 MATERNAL ANATOMY Uterus: 13.6 x 6.9 x 8.7 cm Right Ovary: 3.0 x 3.2 x 1.8 cm Left Ovary: 4.3 x 2.7 x 2.2 cm Post CDS / Adnexa: wnl Presence of free fluid: No Presence of corpus luteal cyst: Left Ovary= 3.1 x 1.8 x 2.3 cm Presence of subchorionic bleed: NATALEE= 2.8 x 1.2 x 3.1 cm GESTATION / SURVEY CRL: 3.0 cm (10 weeks/0 days) MSD: wnl Yolk Sac (normal less than 6mm): 3mm Heart Rate: 172 bpm Rhythm: Normal IUP: Live IUP Single, live IUP/ Small sub-chorionic bleed lower uterine segment IMPRESSION: Single live intrauterine with a sonographic age of 10 weeks and estimated date of delivery of 04/19/2020, concordant with menstrual age. Small subchorionic hemorrhage measures up to 2.8 cm, less than 25% the gestational sac diameter.
== END | disposition home or self-care (01) ==
LOC: RADUSWWP 14:29
PROVIDERS: ATTEND Obstetrics & Gynecology
DX: Z36.9 Encounter for antenatal screening, unspecified (principal); Z3A.10 10 weeks gestation of pregnancy
CPT/HCPCS: 76801

== ENCOUNTER 2020-04-01 00:12 | Outpatient (CLI) | payer OTHER ==
[2020-04-01 01:45] VITALS: BP 125/72; PULSE 81; RESP 16; TEMP 96.4
--- NOTE | 2020-04-01 09:18 | P.MSEPDOC ---
Presenting Problems - Arrival Data Date of Arrival on Unit: 04/01/20 Time of Arrival on Unit: 00:12 Mode of Transport: Ambulatory - Complaint OB-Reason for Admission/Chief Complaint: Decreased Movement Comment: Pt states not feeling baby move since around 1700. Pt states contractions every. 5-10 minutes, pain 4/10. States main reason for coming to triage was decreased . movement. Medical History - Information : 7 Para: 5 Term: 4 : 1 Abortions: Spontaneous or Elective: 0 Number of Living Children: 5 - Gestational Age Gestational Age by JAKE (wks/days): 37 Weeks and 4 Days Review of Systems - Review of Systems Constitutional: No problems Breast: No problems ENT: No problems Cardiovascular: No problems Respiratory: No problems Gastrointestinal: No problems Genitourinary: No problems Musculoskeletal: No problems Neurological: No problems Skin: No problems Vital Signs - Temperature Temperature: 96.4 F Temperature Source: Temporal Artery Scan - Pulse Right Brachial Pulse Rate: 81 Pulse Assessment Method: Automatic Cuff - Respirations Respiratory Rate: 16 Oxygen Delivery Method: Room Air O2 Sat by Pulse Oximetry: 97 - Blood Pressure Right Arm Blood Pressure: 125/72 Blood Pressure Mean: 89 Blood Pressure Source: Automatic Cuff Medical Screen Scoring (Pre) - Cervical Exam Dilation: 1-3 cm = 1 Membranes: Intact - Uterine Contractions Frequency: > or = 36 weeks =2 Duration: > 40 seconds = 2 Intensity: N/A - Maternal Vital Signs Maternal Temperature: N/A Maternal Blood Pressure: N/A Signs of Preeclampsia: N/A Maternal Respirations: N/A - Maternal Trauma Maternal Trauma: N/A - Assessment - Baby A Baseline FHR: 135 Heart Rate - NICHD Category: Category I (Normal) = 0 NST: Reactive - Total Score - Baby A Total Score - Baby A: 5 - Total Score - Baby B Total Score - Baby B: 5 - Total Score - Baby C Total Score - Baby C: 5 - Level of Risk - Baby A Level of Risk - Baby A: Low (0-5) - Level of Risk - Baby B Level of Risk - Baby B: Low (0-5) - Level of Risk - Baby C Level of Risk - Baby C: Low (0-5) Physician Notification (Pre) - Physician Notified Physician Notified Date: 04/01/20 Physician Notified Time: 01:33 New Order Received: Yes - Notification Comment Comment: Reported pt feeling moving, reactive nst, irregular contractions with no cervical change /2. Follow up with Dr. Miryam Nath 04/04/20 Disposition - Disposition OB Disposition: Discharge to home, Written follow up instructions reviewed Discharge Date: 04/01/20 Discharge Time: 01:33 I agree with the RN Medical Screening Exam: Yes Risk & Benefit of care provided described in d/c instruction: Yes Diagnosis: DECREASED MOVEMENTS, THIRD TRIMESTER, UNSP
== END 2020-04-01 01:33 | disposition home or self-care (01) ==
LOC: FBPOP 00:12
PROVIDERS: ATTEND Obstetrics & Gynecology
DX: O36.8130 Decreased fetal movements, third trimester, not applicable or unspecified (principal); Z3A.37 37 weeks gestation of pregnancy
CPT/HCPCS: 59025; G0463; 99213

== ENCOUNTER 2020-04-04 01:26 | Outpatient (CLI) | payer OTHER ==
[2020-04-04 03:06] VITALS: BP 127/73; PULSE 103; RESP 18; TEMP 97.9
--- NOTE | 2020-04-04 05:29 | P.MSEPDOC ---
Presenting Problems - Arrival Data Date of Arrival on Unit: 04/04/20 Time of Arrival on Unit: 01:25 Mode of Transport: Wheelchair - Complaint OB-Reason for Admission/Chief Complaint: Possible Onset of Labor Comment: cntrx since 1900 Medical History - Information : 7 Para: 5 Term: 4 : 1 Abortions: Spontaneous or Elective: 1 Number of Living Children: 5 - Gestational Age Gestational Age by JAKE (wks/days): 38 Weeks and 0 Days Review of Systems - Review of Systems Constitutional: No problems Breast: No problems ENT: No problems Cardiovascular: No problems Respiratory: No problems Gastrointestinal: No problems Genitourinary: No problems Musculoskeletal: No problems Neurological: No problems Skin: No problems Vital Signs - Temperature Temperature: 97.9 F Temperature Source: Temporal Artery Scan - Pulse Right Pulse Rate: 103 Pulse Assessment Method: Pulse Oximetry - Respirations Respiratory Rate: 18 Oxygen Delivery Method: Room Air O2 Sat by Pulse Oximetry: 97 - Blood Pressure Right Arm Blood Pressure: 127/73 Blood Pressure Mean: 91 Blood Pressure Source: Automatic Cuff Medical Screen Scoring (Pre) - Cervical Exam Dilation: 4-7 cm = 2 Membranes: Intact - Uterine Contractions Frequency: > or = 36 weeks =2 Duration: > 40 seconds = 2 Intensity: N/A - Maternal Vital Signs Maternal Temperature: N/A Maternal Blood Pressure: N/A Signs of Preeclampsia: N/A Maternal Respirations: N/A - Maternal Trauma Maternal Trauma: N/A - Assessment - Baby A Baseline FHR: 130 Heart Rate - NICHD Category: Category I (Normal) = 0 NST: Reactive - Total Score - Baby A Total Score - Baby A: 6 - Total Score - Baby B Total Score - Baby B: 6 - Total Score - Baby C Total Score - Baby C: 6 - Level of Risk - Baby A Level of Risk - Baby A: Medium (6-9) - Level of Risk - Baby B Level of Risk - Baby B: Medium (6-9) - Level of Risk - Baby C Level of Risk - Baby C: Medium (6-9) Physician Notification (Pre) - Physician Notified Physician Notified Date: 04/04/20 Physician Notified Time: 02:52 New Order Received: Yes - Notification Comment Comment: reported on pts c/o cntrx, reactive fhts, cntrx pattern 2-7 and irregular. reported on SVE on admission and after one hour, RN offered pt to stay another hour and be rechecked, pt wanting to go home at this time. reported that pt has appt this am at 1030 with reed. gbs-. orders for pt to stay another hour if desired, and if no cervical change at that point to be d/c'd home, or that pt may be d/c'd at this time if she's comfortable with that. Disposition - Disposition OB Disposition: Discharge to home Discharge Date: 04/04/20 Discharge Time: 03:00 I agree with the RN Medical Screening Exam: Yes Risk & Benefit of care provided described in d/c instruction: Yes Diagnosis: FALSE LABOR AT OR AFTER 37 COMPLETED WEEKS OF GESTATION (Patient presents to labor and delivery with complaints of contractions. Cervix had no significant change on serial exams. Because the patient lives approximately 25 minutes away and it is not her first baby offered her to stay for an additional hour for observation however she requests to go home. Patient did not appear uncomfortable time of discharge therefore was felt stable for discharge home follow up with Dr. Salcedo in the morning. Patient instructed to return if she had any significant contractions and more painful, leaking of fluid, vaginal bleeding.)
[2020-04-04] MEDS ORDERED: PRENATAL VIT-IRON-FOLIC ACID 1 EACH CAP PO SCH (09:00)
== END 2020-04-04 03:05 | disposition home or self-care (01) ==
LOC: FBPOP 01:26
PROVIDERS: ATTEND Obstetrics & Gynecology
DX: O47.1 False labor at or after 37 completed weeks of gestation (principal); Z3A.38 38 weeks gestation of pregnancy
CPT/HCPCS: 59025; G0463; 99213

== ENCOUNTER 2020-04-04 11:07 | Inpatient (IN) | payer OTHER ==
[2020-04-04] MEDS ORDERED: TERBUTALINE 1 MG/ML VIAL SQ PRN (11:27)
[2020-04-04] MEDS ORDERED: METHYLERGONOVINE 0.2 MG/ML 1 ML AMP IM PRN (11:27)
[2020-04-04] MEDS ORDERED: CARBOPROST TROMETHAMINE 250 MCG/ML 1 ML AMP IM PRN (11:27)
[2020-04-04] MEDS ORDERED: LIDOCAINE 0.5% (PF) 5 MG/ML (50 ML SDV) SQ PRN (11:27)
[2020-04-04] MEDS ORDERED: OXYTOCIN 10 UNIT/ML 1 ML VIAL IM PRN (11:27)
[2020-04-04] MEDS: LACTATED RINGERS 1,000 ML IV SCH (11:30)
[2020-04-04 11:49] LABS: Basophils % (A) 0 %; Eosinophils % (A) 0 %; HCT 34.3 % (34.0-46.0); HGB 11.3 gm/dL (11.4-16.0); Lymphocytes # (A) 0.5 k/uL (1.0-4.8); Lymphocytes % (A) 6 %; MCH 30.8 pg (25.0-35.0); MCV 93.5 fL (80.0-100.0); Mean Platelet Volume 9.4; Monocytes # (A) 0.2 k/uL (0-1.0); Monocytes % (A) 3 %; Neutrophils % (A) 90 %; Platelet Count 176 k/uL (150-450); RBC 3.67 m/uL (3.80-5.40); RDW 14.4 % (11.5-15.5); WBC 8.8 k/uL (3.8-10.6)
[2020-04-04] MEDS ORDERED: OXYTOCIN 30 UNITS/500 ML NS 30 UNIT in SALINE 1 500ML.BAG IV SCH (12:30)
[2020-04-04] MEDS ORDERED: BUTORPHANOL 1 MG/ML 1 ML VIAL IV PRN (15:53)
[2020-04-04] MEDS ORDERED: diphenhydrAMINE 25 MG CAP PO PRN (16:37)
[2020-04-04] MEDS ORDERED: HYDROCORTISONE 2.5% RECTAL CREAM 30 GM TUBE RECTAL PRN (16:37)
[2020-04-04] MEDS ORDERED: LANOLIN CREAM 5 GM TUBE TOPICAL PRN (16:37)
[2020-04-04] MEDS ORDERED: IBUPROFEN 600 MG TAB PO PRN (16:37)
[2020-04-04] MEDS ORDERED: diphenhydrAMINE 50 MG CAP PO PRN (16:37)
[2020-04-04] MEDS ORDERED: BENZOCAINE/MENTHOL SPRAY 1 GM/SPRAY AEROSOL TOPICAL PRN (16:37)
[2020-04-04] MEDS ORDERED: SIMETHICONE 80 MG CHEWABLE PO PRN (16:37)
[2020-04-04] MEDS ORDERED: ZOLPIDEM 5 MG TAB PO PRN (16:37)
[2020-04-04] MEDS ORDERED: ACETAMINOPHEN TAB 325 MG TAB PO PRN (16:37)
[2020-04-04] MEDS ORDERED: diphenhydrAMINE 50 MG/ML 1 ML VIAL IVP PRN ×2 (16:37)
--- NOTE | 2020-04-04 16:41 | P.HPOB ---
History of Present Illness H&P Date: 04/04/20 Chief Complaint: Intrauterine at term: Active labor Senia is a 34-year-old at 38 weeks gestation who was in labor and delivery earlier this morning dilated to 4 cm. She was seen in my office with continued contractions through the day and at that time she is dilated 6 cm and was sent to labor and delivery for evaluation and admission for expected vaginal delivery. Artificial rupture membranes was then performed and clear fluid is noted. Her course was relatively unremarkable. She does have a heart murmur but no changes were noted throughout the gestation. She did have Rh antibody that was positive following Anthony exam but she did receive it again at 28 weeks for negative Rh antibody. Pertinent labs fluid A- blood type. Rubella is immune. Hepatitis B surface antigen and RPR were both negative as well as groupie strep. heart tones are category 1 and will plan Pitocin augmentation of labor and expected vaginal delivery. Past Medical History Past Medical History: No Reported History Additional Past Medical History / Comment(s): Obstetric history: She's had 4 previous vaginal deliveries. This is her fifth and she got most her care in [place] recently transferred to Dr. Witt. Blood type is A- , antibodies negative, rubella immune, hepatitis B negative, HIV nonreactive, RPR nonreactive, declined quad screen and declined cystic fibrosis screening, abnormal 1 hour but normal 3 hour GTT, GBS negative. History of Any Multi-Drug Resistant Organisms: None Reported Past Surgical History: No Surgical Hx Reported Past Anesthesia/Blood Transfusion Reactions: No Reported Reaction Past Psychological History: No Psychological Hx Reported Smoking Status: Former smoker Past Alcohol Use History: None Reported Past Drug Use History: None Reported - Past Family History Father Family Medical History: Cancer, Diabetes Mellitus, Hypertension Mother Family Medical History: Diabetes Mellitus, Hypertension Medications and Allergies Home Medications Medication Instructions Recorded Confirmed Type Ocr-Ploi-Ulhzf Acid 1 tablet PO DAILY 11/30/18 04/04/20 History [-U Capsule (formulary)] Allergies Allergy/AdvReac Type Severity Reaction Status Date / Time No Known Allergies Allergy Verified 04/04/20 11:27 Exam Osteopathic Statement: *. No significant issues noted on an osteopathic structural exam other than those noted in the History and Physical/Consult. Vital Signs Temp Pulse Resp BP Pulse Ox 04/04/20 11:30 97.9 F 98 16 125/72 97 Intake and Output 04/04/20 04/04/20 04/04/20 06:59 14:59 22:59 Other: # Voids 1 Weight 112.491 kg - OBG Physical Exam Breast: both: normal (no masses) Abdomen: bowel sounds normal, no diffuse tenderness, no bruit present, no guarding noted, no hepatomegaly, no splenomegaly, no mass Vulva: both: normal Vagina: normal moisture, no discharge Cervix: no lesion, no discharge Uterus: normal size, normal contour Adnexa: both: normal Anus/Rectum: normal perianal skin, no rectal mass, no hemorrhoids, heme negative Results Result Diagrams: 04/04/20 11:30 Abnormal Lab Results - Last 24 Hours (Table) 04/04/20 Range/Units 11:30 RBC 3.67 L (3.80-5.40) m/uL Hgb 11.3 L (11.4-16.0) gm/dL Neutrophils # 8.0 H (1.3-7.7) k/uL Lymphocytes # 0.5 L (1.0-4.8) k/uL
--- NOTE | 2020-04-04 16:43 | P.PROBDLV ---
Vaginal Delivery Note - . Vaginal Delivery Note: Usman barbour progressed to complete and pushing with spontaneous vaginal delivery of a viable male over an intact perineum. Following delivery of the head from straight OA position a nuchal cord 1 was noted and we were unable to release it therefore it was delivered over the shoulder and around the remainder of the body. Once baby was fully delivered mouth nares were bulb suctioned and baby was placed on mother's abdomen where the umbilical cord was allowed to pulsate for 45 seconds prior to clamping and cutting. Nursery personnel was present and assumed care. Placenta was then delivered intact and Pitocin was added to the IV. scores were 9 and 9 at one and 5 minutes respectively and the weight was 7 lbs. 5 oz. Both mother and baby are stable following delivery.
[2020-04-04] MEDS ORDERED: OXYTOCIN 20 UNITS/1000 ML NS 1,000 ML IV SCH (16:45)
[2020-04-04] MEDS: SENNOSIDES-DOCUSATE SODIUM 1 EACH TAB PO SCH (20:49)
[2020-04-05] MEDS ORDERED: Rhogam IMMUNE GLOBULIN 1,500 UNIT/1 ML IM ONE (04:40)
[2020-04-05] MEDS: LACTATED RINGERS 1,000 ML IV SCH ×2 (06:51→09:13)
--- NOTE | 2020-04-05 08:45 | P.DS ---
Providers Date of admission: 04/04/20 11:07 Expected date of discharge: 04/05/20 Attending physician: Mohinder Witt Primary care physician: Stated None Hospital Course: Chronic is doing very well day 1. She's ablating, voiding and tolerating her diet. She voices no complaints and is requesting discharge to home today. Discharge instructions were thoroughly reviewed and a prescription for Motrin and a breast pump are provided. Her vital signs are stable and she is afebrile. Heart regular, lungs clear, extremities without pain. Abdomen is soft uterus firm and lochia is reported be light. Assessment day 1. Plan discharged home follow up with me in 6 weeks. Patient Condition at Discharge: Good Plan - Discharge Summary New Discharge Prescriptions: New Ibuprofen [Motrin] 600 mg PO Q6HR PRN #30 tab PRN Reason: Pain No Action Xuz-Rdhc-Rqxzw Acid [-U Capsule (formulary)] 1 tablet PO TORITO LY Discharge Medication List Xcf-Efeo-Mjzxw Acid [-U Capsule (formulary)] 1 tablet PO DAILY 11/30/18 [History] Ibuprofen [Motrin] 600 mg PO Q6HR PRN #30 tab 04/05/20 [Rx] Follow up Appointment(s)/Referral(s): Mohinder Witt DO [Doctor of Osteopathic Medicine] - 6 Weeks Activity/Diet/Wound Care/Special Instructions: No heavy lifting, limit stairs and driving, and pelvic rest. If any high temperatures, heavy bleeding, or severe pain call my office Discharge Disposition: HOME SELF-CARE
[2020-04-05] MEDS: SENNOSIDES-DOCUSATE SODIUM 1 EACH TAB PO SCH (09:13)
[2020-04-05 16:44] VITALS: BP 128/66; PULSE 82; RESP 18; TEMP 97.6
== END 2020-04-05 17:30 | disposition home or self-care (01) | DRG 807 ==
LOC: 4FBP 11:07
PROVIDERS: ADMIT Obstetrics & Gynecology; ATTEND Obstetrics & Gynecology
PROC: 3E033VJ Introduction of Other Hormone into Peripheral Vein, Percutaneous Approach (ICD-10-PCS; principal; 2020-04-04)
PROC: 10E0XZZ Delivery of Products of Conception, External Approach (ICD-10-PCS; principal; 2020-04-04)
DX: O69.1XX0 Labor and delivery complicated by cord around neck, with compression, not applicable or unspecified (principal); Z37.0 Single live birth; Z3A.38 38 weeks gestation of pregnancy; Z82.49 Family history of ischemic heart disease and other diseases of the circulatory system; Z83.3 Family history of diabetes mellitus; Z87.891 Personal history of nicotine dependence; Z80.9 Family history of malignant neoplasm, unspecified
CPT/HCPCS: 85025; 85461; 86850; 86900; 86901

== ENCOUNTER 2020-11-05 17:41 | Emergency (ER) | payer OTHER ==
[2020-11-05 17:48] VITALS: TEMP 98.6
--- NOTE | 2020-11-05 18:15 | ED ---
Lower Extremity Injury HPI - General Chief Complaint: Extremity Injury, Lower Stated Complaint: L ankle injury Time Seen by Provider: 11/05/20 17:58 Source: patient, RN notes reviewed Mode of arrival: ambulatory Limitations: no limitations - History of Present Illness Initial Comments: Patient is a 35 to female that presents emergency department with left ankle pain. She'll that she was talking to her daughter while walking on her porch steps and missed the bottom step. She noted that the pain is about a 5-6 out of 10 that is constant. She declined the need for any pain medication. She'll that she can walk on it but it does increase in pain. She denied any weakness numbness tingling loss of sensation loss of strength chest pain shortness of breath headache nausea vomiting diarrhea constipation fever fatigue chills. - Related Data Home Medications Medication Instructions Recorded Confirmed Pjv-Zhpw-Zfgks Acid 1 tablet PO DAILY 11/30/18 04/04/20 [-U Capsule (formulary)] Previous Rx's Medication Instructions Recorded Ibuprofen [Motrin] 600 mg PO Q6HR PRN #30 tab 04/05/20 Allergies Allergy/AdvReac Type Severity Reaction Status Date / Time No Known Allergies Allergy Verified 11/05/20 17:47 Review of Systems ROS Statement: Those systems with pertinent positive or pertinent negative responses have been documented in the HPI. ROS Other: All systems not noted in ROS Statement are negative. Past Medical History Past Medical History: No Reported History Additional Past Medical History / Comment(s): Obstetric history: She's had 4 previous vaginal deliveries. This is her fifth and she got most her care in [place] recently transferred to Dr. Witt. Blood type is A- , antibodies negative, rubella immune, hepatitis B negative, HIV nonreactive, RPR nonreactive, declined quad screen and declined cystic fibrosis screening, abnormal 1 hour but normal 3 hour GTT, GBS negative. History of Any Multi-Drug Resistant Organisms: None Reported Past Surgical History: No Surgical Hx Reported Past Anesthesia/Blood Transfusion Reactions: No Reported Reaction Past Psychological History: No Psychological Hx Reported Smoking Status: Former smoker Past Alcohol Use History: None Reported Past Drug Use History: None Reported - Past Family History Father Family Medical History: Cancer, Diabetes Mellitus, Hypertension Mother Family Medical History: Diabetes Mellitus, Hypertension General Exam Limitations: no limitations General appearance: alert, in no apparent distress, obese Head exam: Present: atraumatic, normocephalic, normal inspection Eye exam: Present: normal appearance, PERRL, EOMI. Absent: scleral icterus, conjunctival injection, periorbital swelling ENT exam: Present: normal exam, mucous membranes moist Neck exam: Present: normal inspection. Absent: tenderness, meningismus, lymphadenopathy Respiratory exam: Present: normal lung sounds bilaterally. Absent: respiratory distress, wheezes, rales, rhonchi, stridor Cardiovascular Exam: Present: regular rate, normal rhythm, normal heart sounds. Absent: systolic murmur, diastolic murmur, rubs, gallop, clicks GI/Abdominal exam: Present: soft, normal bowel sounds. Absent: distended, tende rness, guarding, rebound, rigid Extremities exam: Present: normal inspection, normal capillary refill. Absent: full ROM (Decreased range of motion left ankle due to pain.), tenderness, pedal edema, joint swelling, calf tenderness Back exam: Present: normal inspection Neurological exam: Present: alert, oriented X3, CN II-XII intact Psychiatric exam: Present: normal affect, normal mood Skin exam: Present: warm, dry, intact, normal color. Absent: rash Course Vital Signs 11/05/20 11/05/20 17:43 18:47 Temperature 98.6 F Pulse Rate 100 Respiratory 18 18 Rate Blood Pressure 139/74 O2 Sat by Pulse 98 Oximetry Procedures - Orthopedic Splinting/Casting Injury #1 Side: left Lower Extremity Injury Location: ankle Lower Extremity Immobilizer: posterior splint, Josr wrap, synthetic pre-padded splint Other Orthopedic Equipment: crutches Medical Decision Making - Medical Decision Making 45-year-old female complaining of left ankle pain after missing the bottom step reports steps. Left ankle x-ray ordered. Dr. Eckert was consult good, recommended patient be splinted in ER and follow-up outpatient in the next 1-2 days. Case discussed with Dr. Rodarte outpatient discharge home with follow-up to orthopedics. - Radiology Data Radiology results: image reviewed Left ankle x-ray: Acute fracture base of the fifth metatarsal. Disposition Clinical Impression: Fracture of fifth metatarsal bone of left foot Disposition: HOME SELF-CARE Condition: Stable Instructions (If sedation given, give patient instructions): Foot Fracture in Adults (ED) Additional Instructions: Please return to the Emergency Department if symptoms worsen or any other concerns. Follow-up with orthopedics in 1-2 days. Take qqsf-cdb-[id number] pain medications as needed for symptomatic management. Wear splint Friday May remove to bath. Use crutches to stay nonweightbearing. Is patient prescribed a controlled substance at d/c from ED?: No Referrals: Mylene Gutierrez MD [Primary Care Provider] - 1-2 days Time of Disposition: 19:52
--- NOTE | 2020-11-05 18:29 | XR ---
EXAMINATION TYPE: XR ankle complete LT DATE OF EXAM: 11/05/2020 COMPARISON: NONE HISTORY: Ankle pain TECHNIQUE: 3 views ankle mortise is anatomic. I see no fracture of the ankle joint. There is a nondisplaced transverse fracture across the base of the fifth metatarsal. There is 4 mm se paration. IMPRESSION: Acute fracture base of the fifth metatarsal.
--- NOTE | 2020-11-05 19:53 | ED ---
Disposition Clinical Impression: Fracture of fifth metatarsal bone of left foot Disposition: HOME SELF-CARE Condition: Stable Instructions (If sedation given, give patient instructions): Foot Fracture in Adults (ED) Additional Instructions: Please return to the Emergency Department if symptoms worsen or any other concerns. Follow-up with orthopedics in 1-2 days. Take [id number]-[id number] pain medications as needed for symptomatic management. Wear splint Friday May remove to bath. Use crutches to stay nonweightbearing. Is patient prescribed a controlled substance at d/c from ED?: No Referrals: Mylene Gutierrez MD [Primary Care Provider] - 1-2 days Fe Eckert DO [Doctor of Osteopathic Medicine] - 1-2 days Time of Disposition: 19:52
[2020-11-05 20:09] VITALS: BP 151/90; PULSE 102; RESP 20
== END 2020-11-05 20:02 | disposition home or self-care (01) ==
LOC: EC 17:41
DX: S92.352A Displaced fracture of fifth metatarsal bone, left foot, initial encounter for closed fracture (principal); Z87.891 Personal history of nicotine dependence; W10.9XXA Fall (on) (from) unspecified stairs and steps, initial encounter; Y93.01 Activity, walking, marching and hiking; Y92.89 Other specified places as the place of occurrence of the external cause
CPT/HCPCS: 29515; 99283

== ENCOUNTER 2020-12-20 21:58 | Emergency (ER) | payer OTHER ==
[2020-12-20] MEDS ORDERED: KETOROLAC 15 MG/ML 1 ML VIAL IVP STA (22:09)
[2020-12-20] MEDS ORDERED: DEXAMETHASONE SOD PHOSPHATE 10 MG/ML 1 ML VIAL IV STA (22:09)
[2020-12-20] MEDS ORDERED: ACETAMINOPHEN TAB 500 MG TAB PO STA (22:09)
[2020-12-20] MEDS ORDERED: ALBUTEROL HFA INHALER INHALATION STA (22:09)
[2020-12-20] MEDS ORDERED: SODIUM CHLORIDE 0.9% 1,000 ML IV STA (22:09)
--- NOTE | 2020-12-20 22:11 | ED ---
Fever HPI - General Chief Complaint: Fever Stated Complaint: SOB Time Seen by Provider: 12/20/20 21:59 Source: patient, RN notes reviewed, old records reviewed Mode of arrival: EMS Limitations: no limitations - History of Present Illness Initial Comments: This is a 35-year-old female DEL with covert, patient has known coronavirus exposures fever cough and congestion. Otherwise patient is no other complaints. Shortness of breath runny nose cough congestion did start 2 days ago maybe 3 with exposure about 6 days ago. Patient is to family members at both of positive coronavirus tests MD Complaint: fever, malaise, weakness -: days(s) (6) Context: sick contacts, multiple patients with similar symptoms Associated Symptoms: chills, myalgias, nasal congestion, sore throat Treatments Prior to Arrival: none - Related Data Home Medications Medication Instructions Recorded Confirmed No Known Home Medications 12/20/20 12/20/20 Allergies Allergy/AdvReac Type Severity Reaction Status Date / Time No Known Allergies Allergy Verified 12/20/20 22:48 Review of Systems ROS Statement: Those systems with pertinent positive or pertinent negative responses have been documented in the HPI. ROS Other: All systems not noted in ROS Statement are negative. Past Medical History Past Medical History: No Reported History Additional Past Medical History / Comment(s): Obstetric history: She's had 4 previous vaginal deliveries. This is her fifth and she got most her care in [place] recently transferred to Dr. Witt. Blood type is A- , antibodies negative, rubella immune, hepatitis B negative, HIV nonreactive, RPR nonreactive, declined quad screen and declined cystic fibrosis screening, abnormal 1 hour but normal 3 hour GTT, GBS negative. History of Any Multi-Drug Resistant Organisms: None Reported Past Surgical History: No Surgical Hx Reported Past Anesthesia/Blood Transfusion Reactions: No Reported Reaction Past Psychological History: No Psychological Hx Reported Smoking Status: Former smoker Past Alcohol Use History: None Reported Past Drug Use History: None Reported - Past Family History Father Family Medical History: Cancer, Diabetes Mellitus, Hypertension Mother Family Medical History: Diabetes Mellitus, Hypertension General Exam Limitations: no limitations General appearance: alert, in no apparent distress Head exam: Present: atraumatic, normocephalic, normal inspection Eye exam: Present: normal appearance, PERRL, EOMI. Absent: scleral icterus, conjunctival injection, periorbital swelling ENT exam: Present: normal exam, mucous membranes moist Neck exam: Present: normal inspection. Absent: tenderness, meningismus, lymphadenopathy Respiratory exam: Present: normal lung sounds bilaterally. Absent: respiratory distress, wheezes, rales, rhonchi, stridor Cardiovascular Exam: Present: regular rate, normal rhythm, normal heart sounds. Absent: systolic murmur, diastolic murmur, rubs, gallop, clicks GI/Abdominal exam: Present: soft, normal bowel sounds. Absent: distended, te nderness, guarding, rebound, rigid Extremities exam: Present: normal inspection, full ROM, normal capillary refill. Absent: tenderness, pedal edema, joint swelling, calf tenderness Back exam: Present: normal inspection Neurological exam: Present: alert, oriented X3, CN II-XII intact Psychiatric exam: Present: normal affect, normal mood Skin exam: Present: warm, dry, intact, normal color. Absent: rash Course Vital Signs 12/20/20 12/20/20 12/21/20 22:06 23:05 00:00 Temperature 102.1 F H 99.8 F H Pulse Rate 71 77 Respiratory 19 18 Rate Blood Pressure 123/63 123/64 O2 Sat by Pulse 99 99 96 Oximetry 12/21/20 12/21/20 01:20 02:35 Temperature 99.0 F 98.2 F Pulse Rate 103 H 95 Respiratory 18 18 Rate Blood Pressure 129/77 104/66 O2 Sat by Pulse 94 L 96 Oximetry - Reevaluation(s) Reevaluation #1: Medical record is reviewed Symptoms improved here in the ER Patient informed of results and questions answered Medical Decision Making - Medical Decision Making 35 female positive coronavirus. Patient's accepts BAM treatment and can be discharged home - Lab Data Result diagrams: 12/20/20 22:34 12/20/20 22:34 Lab Results 12/20/20 12/20/20 12/20/20 Range/Units 22:34 22:34 22:34 WBC 3.8 (3.8-10.6) k/uL RBC 4.25 (3.80-5.40) m/uL Hgb 12.7 (11.4-16.0) gm/dL Hct 37.8 (34.0-46.0) % MCV 88.9 (80.0-100.0) fL MCH 29.9 (25.0-35.0) pg MCHC 33.7 (31.0-37.0) g/dL RDW 13.6 (11.5-15.5) % Plt Count 102 L (150-450) k/uL MPV 8.3 Neutrophils % 79 % Lymphocytes % 16 % Monocytes % 3 % Eosinophils % 1 % Basophils % 1 % Neutrophils # 3.0 (1.3-7.7) k/uL Lymphocytes # 0.6 L (1.0-4.8) k/uL Monocytes # 0.1 (0-1.0) k/uL Eosinophils # 0.0 (0-0.7) k/uL Basophils # 0.0 (0-0.2) k/uL PT 9.7 (9.0-12.0) sec INR 0.9 (<1.2) APTT 24.9 (22.0-30.0) sec D-Dimer 0.72 H (<0.60) mg/L FEU Sodium 138 (137-145) mmol/L Potassium 3.6 (3.5-5.1) mmol/L Chloride 107 (98-107) mmol/L Carbon Dioxide 20 L (22-30) mmol/L Anion Gap 11 mmol/L BUN 8 (7-17) mg/dL Creatinine 0.64 (0.52-1.04) mg/dL Est GFR (CKD-EPI)AfAm >90 (>60 ml/min/1.73 sqM) Est GFR (CKD-EPI)NonAf >90 (>60 ml/min/1.73 sqM) Glucose 108 H (74-99) mg/dL Plasma Lactic Acid Evert (0.7-2.0) mmol/L Calcium 7.9 L (8.4-10.2) mg/dL Magnesium 1.7 (1.6-2.3) mg/dL Total Bilirubin 0.6 (0.2-1.3) mg/dL AST 96 H (14-36) U/L ALT 94 H (4-34) U/L Alkaline Phosphatase 55 (38-126) U/L Lactate Dehydrogenase 1096 H (313-618) U/L C-Reactive Protein 7.8 H (<1.0) mg/dL Total Protein 7.0 (6.3-8.2) g/dL Albumin 3.7 (3.5-5.0) g/dL Influenza Type A (PCR) (Not Detectd) Influenza Type B (PCR) (Not Detectd) RSV (PCR) (Not Detectd) SARS-CoV-2 (PCR) (Not Detectd) 12/20/20 12/21/20 Range/Units 22:34 00:14 WBC (3.8-10.6) k/uL RBC (3.80-5.40) m/uL Hgb (11.4-16.0) gm/dL Hct (34.0-46.0) % MCV (80.0-100.0) fL MCH (25.0-35.0) pg MCHC (31.0-37.0) g/dL RDW (11.5-15.5) % Plt Count (150-450) k/uL MPV Neutrophils % % Lymphocytes % % Monocytes % % Eosinophils % % Basophils % % Neutrophils # (1.3-7.7) k/uL Lymphocytes # (1.0-4.8) k/uL Monocytes # (0-1.0) k/uL Eosinophils # (0-0.7) k/uL Basophils # (0-0.2) k/uL PT (9.0-12.0) sec INR (<1.2) APTT (22.0-30.0) sec D-Dimer (<0.60) mg/L FEU Sodium (137-145) mmol/L Potassium (3.5-5.1) mmol/L Chloride (98-107) mmol/L Carbon Dioxide (22-30) mmol/L Anion Gap mmol/L BUN (7-17) mg/dL Creatinine (0.52-1.04) mg/dL Est GFR (CKD-EPI)AfAm (>60 ml/min/1.73 sqM) Est GFR (CKD-EPI)NonAf (>60 ml/min/1.73 sqM) Glucose (74-99) mg/dL Plasma Lactic Acid Evert 0.7 (0.7-2.0) mmol/L Calcium (8.4-10.2) mg/dL Magnesium (1.6-2.3) mg/dL Total Bilirubin (0.2-1.3) mg/dL AST (14-36) U/L ALT (4-34) U/L Alkaline Phosphatase (38-126) U/L Lactate Dehydrogenase (313-618) U/L C-Reactive Protein (<1.0) mg/dL Total Protein (6.3-8.2) g/dL Albumin (3.5-5.0) g/dL Influenza Type A (PCR) Not Detected (Not Detectd) Influenza Type B (PCR) Not Detected (Not Detectd) RSV (PCR) Not Detected (Not Detectd) SARS-CoV-2 (PCR) Detected A (Not Detectd) - EKG Data -: EKG Interpreted by Me (EKG shows sinus tachycardia 123 [place] 150 QRS 88 QTc 446) - Radiology Data Radiology results: report reviewed (Chest x-ray shows possible covert pneumonia), image reviewed Disposition Clinical Impression: Coronavirus infection, Pneumonia due to COVID-19 virus Disposition: HOME SELF-CARE Condition: Good Instructions (If sedation given, give patient instructions): Coronavirus Disease 2019 (COVID-19) Is patient prescribed a controlled substance at d/c from ED?: No Referrals: None,Stated [Primary Care Provider] - 1-2 days
--- NOTE | 2020-12-20 22:31 | XR ---
EXAMINATION TYPE: XR chest 1V portable DATE OF EXAM: 12/20/2020 COMPARISON: NONE HISTORY: Cough. Short of breath. TECHNIQUE: FINDINGS: Heart size is normal. There is patchy interstitial infiltrates in both lungs. There are no hilar masses. Costophrenic angles are clear. I see no definite heart failure. Bony thorax is intact. IMPRESSION: Pulmonary interstitial infiltrates. Normal heart.
[2020-12-20 22:55] LABS: Basophils % (A) 1 %; Eosinophils % (A) 1 %; HCT 37.8 % (34.0-46.0); HGB 12.7 gm/dL (11.4-16.0); Lymphocytes # (A) 0.6 k/uL (1.0-4.8); Lymphocytes % (A) 16 %; MCH 29.9 pg (25.0-35.0); MCHC 33.7 g/dL (31.0-37.0); MCV 88.9 fL (80.0-100.0); Mean Platelet Volume 8.3; Monocytes # (A) 0.1 k/uL (0-1.0); Monocytes % (A) 3 %; Neutrophils % (A) 79 %; Platelet Count 102 k/uL (150-450); RBC 4.25 m/uL (3.80-5.40); RDW 13.6 % (11.5-15.5); WBC 3.8 k/uL (3.8-10.6)
[2020-12-20 23:09] LABS: INR 0.9 (<1.2); Partial Thromboplastin Time 24.9 sec (22.0-30.0); Prothrombin Time 9.7 sec (9.0-12.0)
[2020-12-20 23:27] LABS: ALT 94 U/L (4-34); AST 96 U/L (14-36); African American GFR (CKD) >90 (>60 ml/min/1.73 sqM); Albumin 3.7 g/dL (3.5-5.0); Alkaline Phosphatase 55 U/L (38-126); Anion Gap 11 mmol/L; Blood Urea Nitrogen 8 mg/dL (7-17); C Reactive Protein 7.8 mg/dL (<1.0); Calcium 7.9 mg/dL (8.4-10.2); Carbon Dioxide 20 mmol/L (22-30); Chloride 107 mmol/L (98-107); Glucose 108 mg/dL (74-99); LDH 1096 U/L (313-618); Magnesium 1.7 mg/dL (1.6-2.3); Non-African American GFR(CKD) >90 (>60 ml/min/1.73 sqM); Potassium 3.6 mmol/L (3.5-5.1); Sodium 138 mmol/L (137-145); Total Bilirubin 0.6 mg/dL (0.2-1.3)
[2020-12-20 23:33] LABS: D-Dimer 0.72 mg/L FEU (<0.60)
[2020-12-21 00:11] VITALS: RESP 18
[2020-12-21] MEDS ORDERED: BAMLANIVIMAB (EUA) 700 MG, ETESEVIMAB (EUA) 1,400 MG in SODIUM CHLORIDE 0.9% 50 ML IVPB ONE (01:20)
[2020-12-21] MEDS ORDERED: SODIUM CHLORIDE 0.9% 50 ML IVPB ONE (01:30)
[2020-12-21 02:37] VITALS: BP 104/66; PULSE 95; TEMP 98.2
== END 2020-12-21 03:01 | disposition home or self-care (01) ==
LOC: EC 21:58
DX: U07.1 COVID-19 (principal); J12.82 Pneumonia due to coronavirus disease 2019; Z87.891 Personal history of nicotine dependence
CPT/HCPCS: 36415; 93005; 85379; 80053; 83605; 83615; 83735; 85025; 85610; 85730; 86140; 87040; 71045; 99284; 96365; 96375 ×2; 96361; J1100; J1885; 87636

== ENCOUNTER 2022-04-24 18:21 | Emergency (ER) | payer OTHER ==
[2022-04-24 19:18] VITALS: BP 137/74; PULSE 76; RESP 16
--- NOTE | 2022-04-24 19:35 | XR ---
EXAMINATION TYPE: XR ankle complete RT DATE OF EXAM: 04/24/2022 COMPARISON: NONE HISTORY: Ankle pain TECHNIQUE: 3 views FINDINGS: There is plantar and Achilles calcaneal spurring. Ankle mortise is anatomic. I see no fract ure nor dislocation. IMPRESSION: No acute abnormality of the right ankle.
--- NOTE | 2022-04-24 19:48 | ED ---
General Adult HPI - General Chief complaint: Extremity Injury, Lower Stated complaint: fall, rt ankle injury Time Seen by Provider: 04/24/22 19:40 Source: patient Mode of arrival: ambulatory Limitations: no limitations - History of Present Illness Initial comments: Dictation was produced using [employer] dictation software. please excuse any grammatical, word or spelling errors. Chief Complaint: 36-year-old female presents emergency Department with right ankle injury History of Present Illness: 36-year-old female she was walking out of her trailer when she took a misstep. Patient states that she inverted her right ankle area patient states that since then her ankles been hurting. She presents to the ER concerned that she has a fracture. Patient complaining of pain to the medial aspect of her right foot. Patient denies any history of previous ankle injuries. No numbness any paresthesias to the right foot The ROS documented in this emergency department record has been reviewed and confirmed by me. Those systems with pertinent positive or negative responses have been documented in the HPI. All other systems are other negative and/or noncontributory. PHYSICAL EXAM: General Impression: Alert and oriented x3, not in acute distress HEENT: Normocephalic atraumatic, extra-ocular movements intact, pupils equal and reactive to light bilaterally, mucous membranes moist. Cardiovascular: Heart regular rate and rhythm Chest: Able to complete full sentences, no retractions, no tachypnea Musculoskeletal: Pulses present and equal in all extremities, no peripheral edema Right foot: Very minimal swelling to the dorsum of the foot, mild palpatory tenderness to the medial malleolus Motor: no focal deficits noted Neurological: CN II-XII grossly intact, no focal motor or sensory deficits noted Skin: Intact with no visualized rashes Psych: Normal affect and mood ED course: 36-year-old female presents emergency department with ankle injury. Vital signs upon arrival are within acceptable limits. Patient reports inversion mechanism. She has palpatory tenderness to the medial aspect of the right ankle. X-rays unremarkable. Presentation consistent with ankle sprain. Offered crutches she refused. Patient be discharged. - Related Data Home Medications Medication Instructions Recorded Confirmed No Known Home Medications 12/20/20 12/20/20 Allergies Allergy/AdvReac Type Severity Reaction Status Date / Time No Known Allergies Allergy Verified 04/24/22 19:16 Review of Systems ROS Statement: Those systems with pertinent positive or pertinent negative responses have been documented in the HPI. ROS Other: All systems not noted in ROS Statement are negative. Past Medical History Past Medical History: No Reported History Additional Past Medical History / Comment(s): Obstetric history: She's had 4 previous vaginal deliveries. This is her fifth and she got most her care in [place] recently transferred to Dr. Witt. Blood type is A- , antibodies negative, rubella immune, hepatitis B negative, HIV nonreactive, RPR nonreactive, declined quad screen and declined cystic fibrosis screening, abnormal 1 hour but normal 3 hour GTT, GBS negative. History of Any Multi-Drug Resistant Organisms: None Reported Past Surgical History: No Surgical Hx Reported Past Anesthesia/Blood Transfusion Reactions: No Reported Reaction Past Psychological History: No Psychological Hx Reported Smoking Status: Former smoker Past Alcohol Use History: None Reported Past Drug Use History: None Reported - Past Family History Father Family Medical History: Cancer, Diabetes Mellitus, Hypertension Mother Family Medical History: Diabetes Mellitus, Hypertension General Exam Limitations: no limitations Course Vital Signs 04/24/22 19:16 Pulse Rate 76 Respiratory 16 Rate Blood Pressure 137/74 O2 Sat by Pulse 99 Oximetry Disposition Clinical Impression: Ankle sprain Disposition: HOME SELF-CARE Condition: Good Instructions (If sedation given, give patient instructions): Ankle Sprain (ED) Is patient prescribed a controlled substance at d/c from ED?: No Referrals: Mylene Gutierrez MD [Primary Care Provider] - 1-2 days Time of Disposition: 19:48
== END 2022-04-24 20:05 | disposition home or self-care (01) ==
LOC: EC 18:21
DX: S93.401A Sprain of unspecified ligament of right ankle, initial encounter (principal); Z87.891 Personal history of nicotine dependence; W19.XXXA Unspecified fall, initial encounter
CPT/HCPCS: 99284

== ENCOUNTER → 2022-09-13 | Outpatient (CLI) | payer OTHER ==
--- NOTE | 2022-09-13 15:56 | XR ---
EXAMINATION TYPE: XR cervical spine comp DATE OF EXAM: 09/13/2022 3:53 PM INDICATION: Patient age:Female; 37 years old; Reason for study: M54.2; [facility]. COMPARISON: None TECHNIQUE: The cervical spine was imaged in AP, lateral, bilateral oblique, and odontoid projections. FINDINGS: The osseous structures show normal alignment without evidence of an acute fracture. The intervertebra l disk spaces are preserved. Pedicles are intact. Soft tissues are within normal limits. The odonto id appears intact. IMPRESSION: No fracture or dislocation.
== END | disposition home or self-care (01) ==
LOC: RADXRMAIN 15:35
PROVIDERS: ATTEND Nurse Practitioner Family
DX: M54.2 Cervicalgia (principal)
CPT/HCPCS: 72050

== ENCOUNTER 2025-03-24 16:41 | Emergency (ER) | payer OTHER ==
[2025-03-24 16:48] VITALS: RESP 18
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
[2025-03-24 19:46] VITALS: BP 147/81; PULSE 94; TEMP 98.1
--- NOTE | 2025-03-24 19:53 | XR ---
EXAMINATION TYPE: XR chest 2V DATE OF EXAM: 03/24/2025 5:31 PM COMPARISON: None. CLINICAL INDICATION: Female, 39 years old with history of chest pain; [facility] TECHNIQUE: XR chest 2V Frontal and lateral views of the chest. FINDINGS: Lungs/Pleura: Right lower lung atelectasis. There is no evidence of pleural effusion, focal consolida tion, or pneumothorax. Pulmonary vascularity: Unremarkable. Heart/mediastinum: Cardiomediastinal silhouette is unremarkable. Musculoskeletal: No acute osseous pathology. IMPRESSION: Right lower lung atelectasis. No acute cardiopulmonary disease/process. [facility], , 03/24/2025 7:51 PM
== END 2025-03-24 19:46 | disposition home or self-care (01) ==
LOC: EC 16:41
DX: R07.9 Chest pain, unspecified (principal); Z87.891 Personal history of nicotine dependence; V89.2XXA Person injured in unspecified motor-vehicle accident, traffic, initial encounter; W22.8XXA Striking against or struck by other objects, initial encounter
CPT/HCPCS: 71046; 93005; 99284